=== PATIENT | female | born 1935 | race Caucasian/White ===

== ENCOUNTER 2025-03-30 22:44 | Inpatient (IN) | payer OTHER, SELFPAY ==
[2025-03-30] VITALS (14 sets, daily range): BP systolic 122–176; BP diastolic 60–127; BMI 26.0; BMI 24.5
--- NOTE | 2025-03-30 13:05 | ED.MUSCINJ ---
HPI-Injury
<Aneta Quesada COLLECTIONS ATTORNEY - Last Filed: 03/30/25 17:26>
General
Chief Complaint: Fall
Source: patient and family (Daughter Lorraine at bedside)
Exam Limitations: dementia
Time Seen by Provider: 03/30/25 12:20
History of Present Illness-Injury
Initial Injury comments:
89-year-old female with history of COPD, CAD, HTN, HLD, Drkae's esophagus, anxiety/depression, dementia, pulmonary hypertension, severe arthritis/ennm-vt-igsx right knee, presents after a fall. Patient states she fell in her bedroom, she is
unclear of the exact circumstances, daughter states she is frequent falls over the past few years, last big fall was not January when she fell and fractured her clavicle, she went to rehab and was sent back to [facility] the end of February. She
does use a rollator. She has an aide from 8 AM to 8 PM daily.
Daughter is in process of getting her into an assisted living facility.
She is complaining of pain about the left hip and buttock area, she is not anticoagulated, she denies hitting her head but she is a poor historian. There is no history of loss of consciousness.
Patient is confused about the fall, she thinks she felt dizzy prior to the fall but she is not sure, she think she was using her walker but she is not sure.
Past History
<Aneta Quesada COLLECTIONS ATTORNEY - Last Filed: 03/30/25 17:26>
Past History
ED Past Medical History: COPD, HTN, Hypercholesterolemia, Psychiatric (Alzheimer's dementia, MDD, Anxiety/depression), Other (CKD, Drake's esophagus, osteoporosis) and Other (Gait instability, pulmonary hypertension)
ED Past Surgical History: Orthopedic
Social History
Tobacco: Non-smoker
Alcohol: None
Living: alone (Independent care at [facility])
Review of Systems
<Aneta Quesada COLLECTIONS ATTORNEY - Last Filed: 03/30/25 17:26>
Review of Systems
Allergies reviewed?: Yes
All Other Systems: ROS reviewed and negative except as documented in HPI and ROS
Constitutional: Denies fever
Respiratory: Denies trouble breathing
Cardiac: Denies chest pain or syncope
ABD/GI: Denies abdominal pain, nausea, vomiting or diarrhea
: Reports incontinence; Denies dysuria
Musculoskeletal: Reports other (Left hip and buttock pain, chronic right knee pain)
Neurological: Denies dizzy or headache
Phy Exam
<Aneta Quesada, COLLECTIONS ATTORNEY - Last Filed: 03/30/25 17:26>
Physical Exam
Physical Exam:
GENERAL: No acute distress. A&Ox2.
CONSTITUTIONAL: Afebrile.
EYES: clear, conjunctivae normal
ENMT: moist mucus membranes, Pharynx nl
RESPIRATORY: Regular respirations, nonlabored, lungs clear.
CARDIOVASCULAR: Regular rate and rhythm, no murmurs, no rubs.
GI: Soft, nontender, normal BS
MUSCULOSKELETAL: Tender to palpate left buttock and hip areas (new), R knee (chronic) Well perfused. No edema.
SKIN: Warm, dry, pale
PSYCH: Anxious mood and affect. Well kept, interactive and appropriate
NEUROLOGIC: Awake, alert and oriented x 2. No focal neurological deficits
Injury Course
<nAeta Quesada, COLLECTIONS ATTORNEY - Last Filed: 03/30/25 17:26>
Orders/Labs/Results
Orders:
Orders
03/30/25 11:31
CT Cervical Spine W/o Iv Contr Urgent
Comment:
Reason For Exam: unwitnessed fall, head injury
CT Head W/o Iv Contrast Urgent
Comment:
Reason For Exam: unwitnessed fall, head injury
Hip, Left 2-3 Views [CR Hip - LT w/wo Pel 2-3 Vw*] Urgent
Comment:
Reason For Exam: pain after fall
Include a pelvis x-ray?: Yes
03/30/25 13:20
Morphine Sulfate 2 mg IV NOW STA
03/30/25 13:26
Basic Metabolic Panel Urgent
Complete Blood Count/With Diff Urgent
03/30/25 13:30
Electrocardiogram (*1) Urgent
Reason for Study: Chest Pain
EKG- Treatment ONCE
03/30/25 13:36
Straight cath- Treatment ONCE
0.9% Sodium Chloride 500 ml [Nss] 500 ml IV BOLUS
03/30/25 14:06
Urinalysis Reflex To Culture Urgent
Date Specimen was Collected: 03/30/25
Time Specimen was Collected: 13:31
Urine Microscopic Reflex Cult Urgent
Urine Culture Urgent
JUAN Source: U
Specimen Description:
Obtained by: Random
Date Specimen was Collected: 03/30/25
Time Specimen was Collected: 13:31
03/30/25 14:39
Morphine Sulfate 2 mg IV NOW STA
03/30/25 15:03
Admit/Transfer Patient As Directed
Co-Sign Provider:
Level of Care: Observation services
Assign to:: Medical/Surgical
Physician / Group: Deepika
Diagnosis: Pelvic Fracture
PRN Pain Medication Management As Directed
May give lesser potent ordered pain med per pt: Yes
preference::
Protocol:: Medication orders for pain may be administered in a
manner that supports deferring to patient preference
when the pt is:
- Requesting an ordered lesser potent pain medication.
Least to most potent pain medications are defined
as: acetaminophen < NSAID < tramadol < opioids
(morphine, oxycodone, hydromorphone).
- Requesting a lesser dose of the same medication IF
ORDERED.
- Requesting a less intrusive route of administration
if both routes are prescribed by the provider (PO <
IV).
03/30/25 15:05
Code Status As Directed
Resuscitation Status: Full Code
03/30/25 17:02
Acetaminophen [Tylenol] 1,000 mg PO TID
Lactase Enzyme [Lactaid] 1 capsule PO AC
Oxycodone [Roxicodone] 2.5 mg PO Q4HPRN PRN
Oxycodone [Roxicodone] 5 mg PO Q4HPRN PRN
03/30/25 17:02
Activity As Directed
Activity Level: Out of Bed- Chair
Orthostatic Vital Signs As Directed
Orthostatic VS Frequency: Daily
Pneumatic Compression Sleeves As Directed
Type: Knee high
Vital Signs As Directed
Frequency: Per unit guidelines
Cpap [RESP] Routine
Patient to use own unit?: Yes
Ot Eval And Treat Routine
Pt Eval And Treat Routine
Activity Level: Out of Bed-Early Mobility
With Assistance
DX Deep Vein Thrombosis Video Routine
03/30/25 20:00
Budesonide/Formoterol 160/4.5 [Symbicort 160/4.5 Mcg Inhaler] 2 puff INH R BID
03/30/25 22:00
Amlodipine [Norvasc] 5 mg PO HS
03/31/25 Breakfast
2000 calorie (17 carb) Diabetic
At Your Request: Limited Participation
Does patient need a safe tray?: No
03/31/25 08:00
Atorvastatin [Lipitor] 10 mg PO DAILY
Cholecalciferol (Vitamin D3) [VITAMIN D3 (cholecalciferol)] 25 mcg PO DAILY
Escitalopram Oxalate [Lexapro] 10 mg PO DAILY
Furosemide [Lasix] 20 mg PO DAILY
Losartan [Cozaar] 100 mg PO DAILY
Metoprolol Xl [Toprol Xl] 25 mg PO DAILY
Pantoprazole [Protonix] 40 mg PO DAILY
04/01/25 08:00
Ferrous Sulfate [Feosol] 325 mg PO MoWeFr@0800
Abnormal Lab Results
03/30/25 03/30/25
13:26 14:06
RBC 4.13 L 10^6/uL
(4.20-5.40)
MCHC 32.4 L g/dL
(33.0-37.0)
Absolute Neuts (auto) 7.5 H 10^3/uL
(1.4-6.5)
Absolute Monos (auto) 1.0 H 10^3/uL
(0.1-0.6)
Lymphocytes % 12.7 L %
(20.5-51.1)
Monocytes % 10.1 H %
(1.7-9.3)
Glucose 102 H mg/dl
(70-99)
Urine Ketones 2+ A
(Negative)
Urine Nitrite (Reflex) Positive A
(Negative)
Leukocyte Esterase Rfl 3+ A
(Negative)
Urine WBC (Reflex) 11-15 A /HPF
(0-5)
Urine Bacteria (Reflex) Moderate A
(Negative)
03/30/25 13:26
03/30/25 13:26
<Agustin Jaime, DO - Last Filed: 03/30/25 15:25>
Orders/Labs/Results
Orders:
Orders
03/30/25 11:31
CT Cervical Spine W/o Iv Contr Urgent
Comment:
Reason For Exam: unwitnessed fall, head injury
CT Head W/o Iv Contrast Urgent
Comment:
Reason For Exam: unwitnessed fall, head injury
Hip, Left 2-3 Views [CR Hip - LT w/wo Pel 2-3 Vw*] Urgent
Comment:
Reason For Exam: pain after fall
Include a pelvis x-ray?: Yes
03/30/25 13:20
Morphine Sulfate 2 mg IV NOW STA
03/30/25 13:26
Basic Metabolic Panel Urgent
Complete Blood Count/With Diff Urgent
03/30/25 13:30
Electrocardiogram (*1) Urgent
Reason for Study: Chest Pain
EKG- Treatment ONCE
03/30/25 13:36
Straight cath- Treatment ONCE
0.9% Sodium Chloride 500 ml [Nss] 500 ml IV BOLUS
03/30/25 14:06
Urinalysis Reflex To Culture Urgent
Date Specimen was Collected: 03/30/25
Time Specimen was Collected: 13:31
Urine Microscopic Reflex Cult Urgent
Urine Culture Urgent
JUAN Source: U
Specimen Description:
Obtained by: Random
Date Specimen was Collected: 03/30/25
Time Specimen was Collected: 13:31
03/30/25 14:39
Morphine Sulfate 2 mg IV NOW STA
03/30/25 15:03
Admit/Transfer Patient As Directed
Co-Sign Provider:
Level of Care: Observation services
Assign to:: Medical/Surgical
Physician / Group: Deepika
Diagnosis: Pelvic Fracture
PRN Pain Medication Management As Directed
May give lesser potent ordered pain med per pt: Yes
preference::
Protocol:: Medication orders for pain may be administered in a
manner that supports deferring to patient preference
when the pt is:
- Requesting an ordered lesser potent pain medication.
Least to most potent pain medications are defined
as: acetaminophen < NSAID < tramadol < opioids
(morphine, oxycodone, hydromorphone).
- Requesting a lesser dose of the same medication IF
ORDERED.
- Requesting a less intrusive route of administration
if both routes are prescribed by the provider (PO <
IV).
03/30/25 15:05
Code Status As Directed
Resuscitation Status: Full Code
03/30/25 17:02
Acetaminophen [Tylenol] 1,000 mg PO TID
Lactase Enzyme [Lactaid] 1 capsule PO AC
Oxycodone [Roxicodone] 2.5 mg PO Q4HPRN PRN
Oxycodone [Roxicodone] 5 mg PO Q4HPRN PRN
03/30/25 17:02
Activity As Directed
Activity Level: Out of Bed- Chair
Orthostatic Vital Signs As Directed
Orthostatic VS Frequency: Daily
Pneumatic Compression Sleeves As Directed
Type: Knee high
Vital Signs As Directed
Frequency: Per unit guidelines
Cpap [RESP] Routine
Patient to use own unit?: Yes
Ot Eval And Treat Routine
Pt Eval And Treat Routine
Activity Level: Out of Bed-Early Mobility
With Assistance
DX Deep Vein Thrombosis Video Routine
03/30/25 20:00
Budesonide/Formoterol 160/4.5 [Symbicort 160/4.5 Mcg Inhaler] 2 puff INH R BID
03/30/25 22:00
Amlodipine [Norvasc] 5 mg PO HS
03/31/25 Breakfast
2000 calorie (17 carb) Diabetic
At Your Request: Limited Participation
Does patient need a safe tray?: No
03/31/25 08:00
Atorvastatin [Lipitor] 10 mg PO DAILY
Cholecalciferol (Vitamin D3) [VITAMIN D3 (cholecalciferol)] 25 mcg PO DAILY
Escitalopram Oxalate [Lexapro] 10 mg PO DAILY
Furosemide [Lasix] 20 mg PO DAILY
Losartan [Cozaar] 100 mg PO DAILY
Metoprolol Xl [Toprol Xl] 25 mg PO DAILY
Pantoprazole [Protonix] 40 mg PO DAILY
04/01/25 08:00
Ferrous Sulfate [Feosol] 325 mg PO MoWeFr@0800
Abnormal Lab Results
03/30/25 03/30/25
13:26 14:06
RBC 4.13 L 10^6/uL
(4.20-5.40)
MCHC 32.4 L g/dL
(33.0-37.0)
Absolute Neuts (auto) 7.5 H 10^3/uL
(1.4-6.5)
Absolute Monos (auto) 1.0 H 10^3/uL
(0.1-0.6)
Lymphocytes % 12.7 L %
(20.5-51.1)
Monocytes % 10.1 H %
(1.7-9.3)
Glucose 102 H mg/dl
(70-99)
Urine Ketones 2+ A
(Negative)
Urine Nitrite (Reflex) Positive A
(Negative)
Leukocyte Esterase Rfl 3+ A
(Negative)
Urine WBC (Reflex) 11-15 A /HPF
(0-5)
Urine Bacteria (Reflex) Moderate A
(Negative)
03/30/25 13:26
03/30/25 13:26
<Aneta Quesada COLLECTIONS ATTORNEY - Last Filed: 03/30/25 17:26>
MDM/Problems Addressed
Differential Diagnosis Includes:
Fracture hip, fracture pelvis
MDM/Problems Addressed:
89-year-old female with history of COPD, CAD, HTN, HLD, Drake's esophagus, anxiety/depression, dementia, pulmonary hypertension, severe arthritis/cjar-pi-imbg right knee, presents after a fall. Patient states she fell in her bedroom, she is
unclear of the exact circumstances, daughter states she is frequent falls over the past few years, last big fall was not January when she fell and fractured her clavicle, she went to rehab and was sent back to [facility] the end of February. She
does use a rollator. She has an aide from 8 AM to 8 PM daily.
Daughter is in process of getting her into an assisted living facility.
She is complaining of pain about the left hip and buttock area, she is not anticoagulated, she denies hitting her head but she is a poor historian. There is no history of loss of consciousness.
Patient is confused about the fall, she thinks she felt dizzy prior to the fall but she is not sure, she think she was using her walker but she is not sure.
EKG: Sinus rhythm with PACs, heart rate 86
2:45 PM:
CBC with no clinically significant abnormality
CMP: Normal
UA: Positive nitrites positive leukocytes, WBC 11-15, culture pending
Xray left hip initial read by this examiner: pelvic ring fracture
Results discussed with patient and daughter
Hospitalist notified of admission
<Aneta Quesada COLLECTIONS ATTORNEY - Last Filed: 03/30/25 17:26>
*Pulse Oximetry
SaO2: 94
Oxygen Mode of Delivery: Room air
Patient hypoxic: no
*EKG
EKG Intrepretation Date: 03/30/25
Interpretation: normal (Other than occasional PACs)
Heart Rate: 86
Rate: normal
Rhythm: PAC's
[place]: normal axis
Interval: normal interval
QRS Pattern: normal QRS
Ischemia: no ischemia
*Critical Care Note
Total Time (30-74mins, 75-104mins- exclusive of procedures): Not Applicable
ED Attending Note
<Aneta Quesada COLLECTIONS ATTORNEY - Last Filed: 03/30/25 17:26>
-
Portions of this chart may have been created with voice recognition software.� Occasional wrong word or��sound alike� substitutions may have occurred due to the inherent limitations of voice recognition software.
<Agustin Jaime DO - Last Filed: 03/30/25 15:25>
ED Attending Note
Patient seen and examined by attending physician: Yes
I performed the substantive portion of visit, reviewed & personally made and approve the management plan that is documented in note by myself or VETO.: Yes
ED Attending Note:
I evaluated patient at bedside after narcotic analgesia was given. She overall feels comfortable currently and appears fairly comfortable. Urinalysis abnormal but we will hold off on treatment as she has no obvious symptoms consistent with UTI.
Discharge Plan
Departure
Patient Disposition: Admit
Date of Disposition: 03/30/25
Time of Disposition: 14:40
Admit to: Med/Surg
Presentation/result/management discussed w/ accepting MD/DO: Hospitalist
Condition: Fair
Discharge Problem:
Fall, Fracture left pelvic ring
Interventions
Interventions:
*Risk Screen - Suicide Last Done: 03/30/25 11:28
*General Assessment Last Done: 03/30/25 11:28
*Neglect/Abuse Screening Last Done: 03/30/25 14:00
*ED COVID-19 Vaccine History Last Done: 03/30/25 14:00
*ED Influenza Vaccine History Last Done: 03/30/25 14:00
*Nursing Disposition Last Done: 03/30/25 17:12
ED-Musculoskeletal Assessment Last Done: 03/30/25 16:00
ED- Neurological Assessment Last Done: 03/30/25 16:00
ED-Skin Assessment Last Done: 03/30/25 16:00
Discharge Date and Time
Discharge Date/Time: 03/30/25 17:13
[2025-03-30] MEDS: MORPHINE SULFATE 2 MG IV ×3 (13:28→23:04)
[2025-03-30 13:37] LABS: Hematocrit 38.3 % (37.0-47.0); Hemoglobin 12.4 g/dL (12.0-16.0); Mean Corp Hgb Conc. 32.4 g/dL (33.0-37.0); Mean Corpuscular Volume 92.7 fL (81.0-99.0); Nucleated Red Blood Cells % 0 %; Platelet Count 241 10^3/uL (130-400); Red Cell Dist. Width 14.0 % (11.5-14.5)
[2025-03-30 13:59] LABS: Blood Urea Nitrogen 17 mg/dl (7-17); Calcium 9.0 mg/dl (8.4-10.2); Carbon Dioxide 25 mmol/L (22-30); Chloride 106 mmol/L (98-107); Glucose 102 mg/dl (70-99); Sodium 138 mmol/L (135-145); eGFR > 60.00
[2025-03-30] MEDS: NSS 500 IV (14:08)
[2025-03-30 14:14] LABS: Urine Character Clear (Clear)
[2025-03-30 14:24] LABS: Urine Red Blood Cell 0-2 /HPF (0-2)
--- NOTE | 2025-03-30 14:49 | HPS.HSE ---
Addendum entered and electronically signed by Cathryn Poe MD 03/30/25 16:29:
This is an addendum to H&P written by Ciera Carmichael on 03/30/2025. �Patient seen and examined independently with PA.
89-year-old female past medical history of COPD, CAD, hypertension, hyperlipidemia, Drake's esophagus/GERD, anxiety/depression, dementia, pulmonary hypertension, severe arthritis, iron deficiency anemia, ambulatory dysfunction with balance and
gait disturbance, history of fracture due to fall, cognitive impairment, osteoporosis, obstructive sleep apnea on CPAP, venous insufficiency, prior clavicular/humerus fracture, presenting with fall last week and again this morning. �Unsure head
injury. �Patient with possible dizziness.
Pain left hip/groin.
Vital signs unremarkable. �EKG shows sinus rhythm with PACs.
Labs unremarkable. �Urinalysis shows 11-15 WBC, positive nitrates, +[address] head/cervical spine shows no acute intracranial abnormality or osseous abnormality. �Hip x-ray shows mildly displaced fracture of the left superior inferior pubic rami.
Patient with ongoing ambulatory dysfunction with frequent falls here with falls again resulting in left superior and inferior pubic rami fractures. �Tylenol, oxycodone for pain. �PT OT. �Check orthostatic vital signs.
Original Note:
Family Physician
-
Family Physician: Jim Jones, DO
Chief Complaint
-
Frequent Falls
History of Present Illness
Patient is an 89 y/o female past medical history of coronary atherosclerosis, hypertension, hyperlipidemia, pre-diabetes, COPD and mild cognitive impairment who presents with frequent falls. Patient has been experiencing increasing falls. Over the
summer she suffered a proximal humerus fracture as well as a clavicle fracture. Patient had a fall last week and since that time she has been complaining of left groin pain. Patient sustained another fall this morning and was brought to the
emergency department for evaluation.
Medical History
Past Medical History
Past Medical History: Reports Other
Additional Past Medical History:
Coronary Atherosclerosis
Essential Hypertension
Hyperlipidemia
Pre-Diabetes
COPD
Mild Cognitive Impairment
Anxiety / Depression
GERD
Osteoarthritis
Chronic Lower Extremity Edema
Obstructive Sleep Apnea
Past Surgical History: Reports Other
Additional Past Surgical History:
Left Radius/Ulna ORIF
Social History
Tobacco: Non-smoker
Living: Other (Independent apartment at [facility] with care givers ~12 hours per day)
Family History
Family History: Not pertinent
Allergies / Home Medications
Allergies reflects when Allergies were last updated in [facility].
Home Medications with original date entered in [facility]
Allergy/Medication List:
Allergies
Allergy/AdvReac Type Severity Reaction Status Date / Time
No Known Allergies Allergy Verified 01/18/25 11:38
Home Medications
acetaminophen 500 mg tablet 1,000 mg PO BID 01/18/25
albuterol sulfate 90 mcg/actuation aerosol inhaler 2 puff inhalation Q6H PRN sob 01/18/25
amlodipine 5 mg tablet 5 mg PO HS 01/18/25
atorvastatin 10 mg tablet 10 mg PO DAILY 01/18/25
cholecalciferol (vitamin D3) 25 mcg (1,000 unit) tablet (Vitamin D3) 25 mcg PO DAILY 01/18/25
escitalopram oxalate 10 mg tablet (Lexapro) 10 mg PO DAILY 01/18/25
ferrous sulfate 325 mg (65 mg iron) tablet (Iron (ferrous sulfate)) 325 mg PO MOWEFR 01/18/25
fluticasone furoate 100 mcg-vilanterol 25 mcg/dose inhalation powder (Breo Ellipta) 1 inh inhalation DAILY 01/18/25
furosemide 20 mg tablet (Lasix) 20 mg PO DAILY 01/18/25
losartan 100 mg tablet 100 mg PO DAILY 01/18/25
metoprolol succinate 25 mg tablet,extended release 24 hr 25 mg PO DAILY 01/18/25
omeprazole 20 mg tablet,delayed release 20 mg PO DAILY 01/18/25
lactase 3,000 unit tablet (Dairy Relief) 3,000 unit PO AC 03/30/25
Review of Systems
-
Unable to obtain full review of systems at this time due to: Dementia (Cognitive Impairment)
A 12 point ROS was completed and negative except as noted: Yes
Physical Exam
Vital Signs
Vital Signs
Temp Pulse Resp BP Pulse Ox
98.8 F 73 18 158/80 94
03/30/25 11:28 03/30/25 11:28 03/30/25 11:28 03/30/25 11:28 03/30/25 13:07
Physical Exam
General: Comfortable and Conversant
HEENT: Anicteric and Moist mucous membranes
Respiratory: Clear and Non Labored Respirations
Cardiac: S1/S2 and Regular Rhythm
GI: Soft and Non Tender
Musculoskeletal: No Clubbing and No Cyanosis
Skin: Warm and Dry
Neuro: Awake, Alert and Nonfocal/grossly intact
Psych: Calm
Laboratory Results
-
03/30/25 13:26
03/30/25 13:26
Laboratory Results
Total Bilirubin Cancelled 03/30/25 13:26
AST Cancelled 03/30/25 13:26
ALT Cancelled 03/30/25 13:26
Alkaline Phosphatase Cancelled 03/30/25 13:26
Data Reviewed
-
Diagnostic Radiology: Report Reviewed by me
CT Scan: Report Reviewed by me
Lab Data: Labs Reviewed by me
Impression/Plan
-
Pelvic Fracture
-Consult PT/OT
-Add Tylenol 1000mg TID
-Add oxycodone PRN moderate/severe pain
-Consult care management for discharge planning
Essential Hypertension
-Continue amlodipine, losartan and metoprolol
Hyperlipidemia
-Continue atorvastatin
Pre-Diabetes
-HgbA1c January 2025: 6.0
-Continue diabetic diet
COPD, no acute exacerbation
-Continue Breo
Anxiety / Depression
-Continue Lexapro
Chronic Lower Extremity Edema
-Continue Lasix
Obstructive Sleep Apnea
-Daughter to bring patients CPAP
Incidental Thyroid Nodule
-Recommend thyroid ultrasound as outpatient
DVT proph: SCDs
Code Status: Full Code
[2025-03-30] MEDS: TYLENOL 1000 MG PO (17:24)
[2025-03-30] MEDS: ROXICODONE 5 MG PO (17:24)
[2025-03-30] MEDS: LACTAID 1 CAPSULE PO (17:51)
[2025-03-30] MEDS: SYMBICORT 160/4.5 MCG INHALER 2 PUFF INH (19:06)
[2025-03-30 22:18] LABS: Glucose - Point of Care 117 mg/dl (70-99)
--- NOTE | 2025-03-30 22:29 | W.PN.UPDATE ---
Update Note
Progress Note Update
RECRUITER SPECIALIST
Patient is hypoxic Spo2 80%, coffee brown vomit.
Patient is alert, Abdomen distended and diminished lung sound on exam.
-NGT and GI consult
-Abg, Chest x-ray, abdomen x-ray, cbc, abg, bmp.
-Abdomen CT when the patient is stable
-IV Protonix BID
-ICU transfer discussed with the admitting physician
-Daughter updated
[2025-03-30] MEDS: MELATONIN PO (22:35)
[2025-03-30] MEDS: TYLENOL PO (22:35)
[2025-03-30] MEDS: NORVASC PO (22:35)
[2025-03-30 22:38] LABS: Hematocrit 38.0 % (37.0-47.0); Hemoglobin 12.7 g/dL (12.0-16.0); Mean Corp Hgb Conc. 33.4 g/dL (33.0-37.0); Mean Corpuscular Volume 88.4 fL (81.0-99.0); Platelet Count 264 10^3/uL (130-400); Red Cell Dist. Width 14.0 % (11.5-14.5)
[2025-03-30 22:51] LABS: INR 1.05; PT 14.2 Sec (11.4-14.6)
[2025-03-30 22:52] LABS: APTT 26.8 Sec (23.4-35.0)
[2025-03-30 22:56] LABS: ALT (SGPT) 12 U/L (0-35); AST (SGOT) 20 U/L (14-36); Albumin 3.9 g/dl (3.5-5.0); Alkaline Phosphatase 155 U/L (38-126); Blood Urea Nitrogen 13 mg/dl (7-17); Calcium 9.0 mg/dl (8.4-10.2); Carbon Dioxide 26 mmol/L (22-30); Chloride 104 mmol/L (98-107); Estimated Creatinine Clearance 56 ml/min; Glucose 126 mg/dl (70-99); Magnesium 1.6 mg/dl (1.6-2.3); Potassium 3.4 mmol/L (3.5-5.1); Sodium 133 mmol/L (135-145); Total Protein 7.2 g/dl (6.3-8.2); eGFR > 60.00
[2025-03-30 22:58] LABS: Glucose - Point of Care 118 mg/dl (70-99)
[2025-03-30] MEDS: PROTONIX IV 40 MG IV (23:04)
[2025-03-30] MEDS: LASIX 40 MG IV (23:04)
[2025-03-30] MEDS: NSS (PRESERVATIVE FREE) 10 ML IV (23:04)
[2025-03-30 23:07] LABS: Troponin I 0.017 ng/ml
[2025-03-30 23:14] LABS: D-Dimer 2.34 ug/mlFEU (0.00-0.50)
[2025-03-30] MEDS: DUONEB 3 ML INH (23:32)
[2025-03-30] MEDS: KCL 270 MEQ IV (23:43)
[2025-03-30] MEDS: MAGNESIUM SULFATE 50 IV (23:43)
[2025-03-30] MEDS: UNASYN IV (23:44)
[2025-03-31] VITALS (42 sets, daily range): BP systolic 109–167; BP diastolic 54–98; BMI 24.0
[2025-03-31 00:08] LABS: COVID-19 Antigen Negative (Negative)
[2025-03-31 00:16] LABS: B.E. 1.7 mmol/L; HCO3 26.6 mmol/L (21-28); O2 Saturation % 97.0 % (94-98); O2 Therapy O2; PCO2 42 mmHg (32-35); PO2 81 mmHg (83-108)
--- NOTE | 2025-03-31 01:18 | PTCARENOTE ---
RN was doing her rounds & found pt with coffee ground emesis,SPO2-64% on room air,pt was placed on oxygen & later non rebreather, pt was alert at this time,denied of any complaints.KADI Lamas was called to check on pt & made aware of pt vitals
BP-170/99,hr-143,SPO2-84%.Rapid response was called on pt.NG tube was placed on pt while on floor. Report was provided to JOSE Franco at bedside.Pt was transfered to ICU by rapid reponse team.
[2025-03-31] MEDS: OFIRMEV 100 IV ×2 (01:29→11:20)
[2025-03-31] MEDS: MORPHINE SULFATE 2 MG IV (01:29)
--- NOTE | 2025-03-31 02:00 | PTCARENOTE ---
Patient received as rapid response from 4th floor. Patient's POX in 80s on 15L NRB on arrival to unit. Patient placed on 50LHFNC 100% w/ 15L NRB - POX in low 90s. Lungs coarse w/ expiratory wheeze. Patient tachypneic and complaining of SOB. Patient
AAOx1-2 - disoriented to place @ times and disoriented to time, drowsy/Lethargic. ST w/ PVCs on monitor. Patient w/ NGT in L nare @ 60 putting out red/brown coffee ground output - 250mls immediately upon arrival to unit. Patient's abd
round/obese/mildly distended with hypo bowel sounds. Thermistor Wooten placed and immediately drained 250 cloudy yellow urine. Patient's B/L ankles w/ +1 edema. Patient given IV Lasix, Protonix, and morphine - see AUG. Patient taken to CT for scan of
Abd/Pelvis/Chest. Patient's temp elevated to 101.9 - IV Ofirmev ordered and administered - see AUG.
--- NOTE | 2025-03-31 02:00 | PTCARENOTE ---
Patient received as rapid response from 4th floor. Patient's POX in 80s on 15L NRB on arrival to unit. Patient placed on 50LHFNC 100% w/ 15L NRB - POX in low 90s. Lungs coarse w/ expiratory wheeze. Patient tachypneic and complaining of SOB. Patient
AAOx1-2 - disoriented to place @ times and disoriented to time, drowsy/Lethargic. ST w/ PVCs on monitor. Patient w/ NGT in L nare @ 60 putting out red/brown coffee ground output - 250mls immediately upon arrival to unit. Patient's abd round/soft
with hypo bowel sounds. Thermistor Wooten placed and immediately drained 250 cloudy yellow urine. Patient's B/L ankles w/ +1 edema. Patient given IV Lasix, Protonix, and morphine - see AUG. Patient taken to CT for scan of Abd/Pelvis/Chest. Patient's
temp elevated to 101.9 - IV Ofirmev ordered and administered - see AUG.
--- NOTE | 2025-03-31 04:27 | W.PN.UPDATE ---
Update Note
Progress Note Update
03/30/25
2300- Patient transferred to ICU for acute hypoxemic respiratory failure, worsening oxygenation needs from room air to now high flow nasal cannula. Initially she had desaturated to 60% and was sustaining 80%, upon arrival to the ICU she was on a
non rebreather and transitioned to high flow nasal cannula, oxygen saturations improved to 95%. She was HR tachycardic 130-140s and tachypnea, bilateral breath sounds wheezing and rales. NGT drainage dark red/brown coffee ground emesis, concern
for probable aspiration pneumonia/pneumonitis vs Pulmonary embolism (patient has had falls and factures, and limited mobility recently, hypoxemia, and tachycardia) vs heart failure (patient also had lower leg/ankle swelling +2 pitting edema
bilaterally and slightly hypertensive sbp 130-140s). Chest xray obtained, 40mg IV Lasix given, 2mg IV morphine, and labs obtained. Patient's respiratory status improved after albuterol nebulizer for wheezing, morphine, and HFNC. CTA ordered to
r/o PE and deferred until patient's respiratory status has improved. Echo and bilateral US lower legs ordered. Protonix IV for coffee ground emesis with NGT to low intermittent suction, GI consult placed.
03/31/25
0015- Patient's daughter called and was updated on plan of care, all questions answered.
CTA negative for PE.
[2025-03-31 04:31] LABS: Hematocrit 36.7 % (37.0-47.0); Hemoglobin 12.4 g/dL (12.0-16.0); Mean Corp Hgb Conc. 33.8 g/dL (33.0-37.0); Mean Corpuscular Volume 90.0 fL (81.0-99.0); Platelet Count 259 10^3/uL (130-400); Red Cell Dist. Width 13.8 % (11.5-14.5)
[2025-03-31 04:53] LABS: Blood Urea Nitrogen 13 mg/dl (7-17); Calcium 8.4 mg/dl (8.4-10.2); Carbon Dioxide 28 mmol/L (22-30); Chloride 105 mmol/L (98-107); Estimated Creatinine Clearance 56 ml/min; Glucose 125 mg/dl (70-99); Potassium 4.2 mmol/L (3.5-5.1); Sodium 139 mmol/L (135-145); eGFR > 60.00
--- NOTE | 2025-03-31 06:11 | CON.GI ---
Addendum entered and electronically signed by Deneen Fraser DO 03/31/25 11:36:
The patient was seen and examined by me independently in collaboration with the nurse practitioner.
Past medical history/social history/medications/allergies/family history reviewed.
Lab data and imaging data reviewed.
89 y.o. female w/ pmhx COPD, CAD, HTN, HLD, KALI, pulm HTN, Barretts, hx colon polyps, cognitive impairment, ambulatory dx and prior cervical fracture admitted following a mechanical fall, found to be hypoxic with SpO2 in the 60s and tachycardic,
after which she vomited s/p NGT placement with immediate drainage of red/brown coffee-ground material, concern for aspiration. She denies NSAID use when asked, however, family reports she started taking ibuprofen 600mg BID for a few days last week
after a fall. Of note, seen in the office by Dr. Messer in May 2024 for AMELIA and positive cologuard, recommended to have an EGD and Colonoscopy, however, she did not complete these.
CT Chest/Abdomen/Pelvis:
Mild RLL airspsace disease c/f pneumonia
hypodense hepatic lesions, likely cysts vs. hemangiomas
small b/l pleural effusions
acute left superior and inferior pubic ramus bone fractures
3 mm distal right ureteral stone
moderate anterior wedge compression fracture of T11, age-indeterminate
Intrathoracic stomach, fluid filled esophagus
A/P: 89 y.o. female admitted following mechanical fall found to have left superior and inferior pubic ramus bone fractures with course c/b hypoxemia, UGIB and aspiration pneumonia, currently on 6L O2.
Coffee-ground emesis in setting of NSAID use as well as suspect hiatal hernia vs. paraesophageal hernia--broad ddx including erosive gastritis/esophagitis, ulcer, MWT, zofia lesions, AVM, diuealfoy, ischmic vs. malignancy
-has NG in place, continue for now, clamping trial once improved
-hgb normal, continue to trend
-no signs of active/hemodynamically unstable GI bleeding
-IV PPI BID
-treat aspiration pneumonia/optimize respiratory status, once improved, will discuss EGD with family --- previously had deferred in June
Will follow.
Addendum entered and electronically signed by KADI Mai 03/31/25 08:03:
add to below CT also noted with , fluid filled esophagus to level of thoracic outlet, esophageal wall thickening-- esophagitis also in differential
Original Note:
Consultation
-
Date/Time Consultation Requested: 03/30/252229
Date/Time Consultation Performed: 03/31/25 0615
Requesting Provider: KADI Leblanc
Performing Provider: KADI Pollack, Beatrice Fraser DO
Reason for Consultation: coffee ground emesis
Medical History
Chief Complaint / HPI
History of Present Illness:
Pt is a 89yo with hx large HH per imaging, COPD, CAD, HTN, hypercholesterolemia, sleep apnea, pulm HTN, Dwyer's, GERD, colon polyps, AMELIA, cognitive impairment, anxiety/depression, arthritis, ambulatory dysfunction, prior cervical fracture
presents with fall. After admission patient was noted with acute hypoxemia with sat to 60's with tachycardia. She was noted with vomiting with placement of NGT with drainage of red/brown CGE with concern for aspiration. CT and abd X ray as noted
with large HH air distention in proximal colon, acute rami fracture along with other findings. In review of chart, pt was seen by Dr. Messer in May for + cologuard and AMELIA. She was recommended EGD/colon but did not proceed. In review with
patient she is lethargic but denies NSAID use or current nausea, abdominal pain or issues with constipation.
In review with family pt did not proceed as concern for anesthesia and cognitive impairment . She have fall last week and started taking Ibuprofen BID 600mg for a few days. Prior to admission pt was also having diarrhea improved with lactate
and was on chronic Omeprazole with controlled GERD. She otherwise has no odynophagia, dysphagia, wt loss, abdominal pain, constipation, blood or black in stools. Hx EGD/colonoscopy in within last 10 years at [facility] with [address] Messer. Per chart
? colon polyp and dwyer's.
03/30/25- CT chest/abd/pelvis- preliminary no PE, no thoracic aneurysm or dissection, right LL infection/aspiration, multifocal nodule, small b/l pleural effusion, large HH, fluid filled esophagus to level of thoracic outlet, esophageal wall
thickening , T11 deformity, no suspicious lymph nodes, displaced pubic ramus and left superior pubic ramus fracture with swelling, 2.2 mm stone distal right ureter without hydro no bowel obstruction, normal GB
03/30/25 abd film
1. No radiographic evidence for small bowel obstruction.
2. Mild air distention of the proximal colon.
3. Acute fractures of the left superior and inferior pubic rami.
4. Severe lower lumbar discogenic degenerative disease and facet joint arthrosis.
Past Medical History
Past Medical History: CAD, COPD, GERD, HTN, Hypercholesterolemia, Psychiatric (anxiety/depression, dementia ) and Other (KALI, dwyer's, colon polyps, congitive impairment, pulm HTN, ambulatory dysfunction, balance issues, large HH per imaging )
Past Surgical History: Orthopedic (left knee replacement, prior clavical fracture)
Social History
Tobacco: Non-Smoker
Alcohol: Occasional (rare)
Drug: None
Personal:
Living: Alone ([facility] )
Employment: Retired
Family History
Family History: Other (no family hx colon CA or GI issues)
Allergies / Home Medications
Allergy/AdvReac Type Severity Reaction Status Date / Time
No Known Allergies Allergy Verified 01/18/25 11:38
�Medication �Instructions �Recorded
acetaminophen 500 mg tablet 1,000 mg PO BID 01/18/25
albuterol sulfate 90 mcg/actuation 2 puff inhalation Q6H PRN sob 01/18/25
aerosol inhaler
amlodipine 5 mg tablet 5 mg PO HS 01/18/25
atorvastatin 10 mg tablet 10 mg PO DAILY 01/18/25
cholecalciferol (vitamin D3) 25 25 mcg PO DAILY 01/18/25
mcg (1,000 unit) tablet (Vitamin
D3)
escitalopram oxalate 10 mg tablet 10 mg PO DAILY 01/18/25
(Lexapro)
ferrous sulfate 325 mg (65 mg 325 mg PO MOWEFR 01/18/25
iron) tablet (Iron (ferrous
sulfate))
fluticasone furoate 100 1 inh inhalation DAILY 01/18/25
mcg-vilanterol 25 mcg/dose
inhalation powder (Breo Ellipta)
furosemide 20 mg tablet (Lasix) 20 mg PO DAILY 01/18/25
losartan 100 mg tablet 100 mg PO DAILY 01/18/25
metoprolol succinate 25 mg 25 mg PO DAILY 01/18/25
tablet,extended release 24 hr
omeprazole 20 mg tablet,delayed 20 mg PO DAILY 01/18/25
release
lactase 3,000 unit tablet (Dairy 3,000 unit PO AC 03/30/25
Relief)
Review of Systems
-
Unable to obtain full review of systems at this time due to: Dementia
History Source: Patient and Family
Constitutional: Reports No Symptoms
EENT: Reports No Symptoms
Respiratory: Reports No Symptoms
Cardiac: Reports No Symptoms
Abdomen/GI: Reports Diarrhea
: Reports Other (overactive bladder with prior botox in january )
Musculoskeletal: Reports Other
Neurological: Reports Weakness and Other (falls )
Endocrine: Reports No Symptoms
Hematologic/Lymphatic: Reports Bleeding
Vital Signs
Temp Pulse Resp BP Pulse Ox
100.1 F 86 20 129/73 98
03/31/25 05:24 03/31/25 05:30 03/31/25 05:30 03/31/25 05:30 03/31/25 02:21
Physical Exam
Exam
General: Other (elderly female with some weakness, answers some questions then drift off in conversation)
HEENT: Normocephalic and Anicteric
Respiratory: Other (decreased bases on current 6 L O2)
Cardiac: Regular Rhythm
GI: Soft, Non Distended, Distended and Other (NGT with dark brown emesis about 450 drainage since placement )
Musculoskeletal: No Clubbing and No Cyanosis
Skin: Warm and Dry
Neuro: Other (lethargic but answering some questions )
Psych: Calm
Results
WBC 21.2 10^3/uL (4.8-10.8) H 03/31/25 04:13
Hgb 12.4 g/dL (12.0-16.0) 03/31/25 04:13
Hct 36.7 % (37.0-47.0) L 03/31/25 04:13
MCV 90.0 fL (81.0-99.0) 03/31/25 04:13
Plt Count 259 10^3/uL (130-400) 03/31/25 04:13
Absolute Neuts (auto) 7.5 10^3/uL (1.4-6.5) H 03/30/25 13:26
PT 14.2 Sec (11.4-14.6) 03/30/25 22:20
INR 1.05 03/30/25 22:20
APTT 26.8 Sec (23.4-35.0) 03/30/25 22:20
Sodium 139 mmol/L (135-145) 03/31/25 04:13
Potassium 4.2 mmol/L (3.5-5.1) 03/31/25 04:13
Chloride 105 mmol/L (98-107) 03/31/25 04:13
Carbon Dioxide 28 mmol/L (22-30) 03/31/25 04:13
BUN 13 mg/dl (7-17) 03/31/25 04:13
Creatinine 0.6 mg/dL (0.6-1.0) 03/31/25 04:13
Calcium 8.4 mg/dl (8.4-10.2) 03/31/25 04:13
Total Bilirubin 1.0 mg/dl (0.2-1.3) 03/30/25 22:20
AST 20 U/L (14-36) 03/30/25 22:20
ALT 12 U/L (0-35) 03/30/25 22:20
Alkaline Phosphatase 155 U/L (38-126) H 03/30/25 22:20
Diagnostic Image Results:
03/30/25- CT chest/abd/pelvis- preliminary no PE, no thoracic aneurysm or dissection, right LL infection/aspiration, multifocal nodule, small b/l pleural effusion, large HH, fluid filled esophagus to level of thoracic outlet, esophageal wall
thickening , T11 deformity, no suspicious lymph nodes, displaced pubic ramus and left superior pubic ramus fracture with swelling, 2.2 mm stone distal right ureter without hydro no bowel obstruction, normal GB
03/30/25 abd film
1. No radiographic evidence for small bowel obstruction.
2. Mild air distention of the proximal colon.
3. Acute fractures of the left superior and inferior pubic rami.
4. Severe lower lumbar discogenic degenerative disease and facet joint arthrosis.
Prior GI Procedures:
EGD: 10 years ago du[facility] messer
Colonoscopy:10 years ago ? polyps
Assessment / Plan
-
Pt is a 89yo with hx large HH per imaging, presents with fall. After admission patient was noted with acute hypoxemia with sat to 60's with tachycardia. She was noted with vomiting with placement of NGT with drainage of red/brown CGE with
concern for aspiration. CT and abd X ray as noted with large HH air distention in proximal colon, acute rami fracture along with other findings. In review of chart, pt was seen by Dr. Messer in May for + cologuard and AMELIA. She was
recommended EGD/colon but did not proceed. In review with family pt did not proceed as concern for anesthesia and cognitive impairment . She have fall last week and started taking Ibuprofen BID 600mg for a few days. Prior to admission pt was
also having diarrhea improved with lactate and was on chronic Omeprazole with controlled GERD. Hx EGD/colonoscopy in within last 10 years at [facility] with [address] Messer. Per chart ? colon polyp and dwyer's.
-dark emesis with NGT placement with vomiting
-recent NSAID use s/p fall
-large HH
-hx AMELIA with chronic iron with normal Hbg
-abd X ray with air distention proximal colon
-rami fracture with recent falls
-hypoxemia with concern for aspiration
-leukocytosis
other med problems:
COPD, CAD, HTN, hypercholesterolemia, sleep apnea, pulm HTN, Dwyer's, GERD, colon polyps, AMELIA, cognitive impairment, anxiety/depression, arthritis, ambulatory dysfunction, prior cervical fracture
PLAN:
Etiology of dark emesis related to zofia lesion with large HH, PUD with hx recent NSAID use, ectasia, mass vs other
cont NGT for now -- if improving consider clamping trial
cont PPI BID
trend hbg remains normal
NPO
NSAID avoidance
cont rx for resp issue and concern for aspiration
when improved from resp standpoint t/c EGD +/- colon -- patient and family had deferred in June with cognitive issues and unsure if still would want to proceed. When stabilized will need to rediscuss with daughter Malcolm who assist with
medical decision making
-
-
Thank you for consultation and allowing me to participate in the patient's care. Please call the [facility] GI physician during the after hours with any questions or concerns.
--- NOTE | 2025-03-31 06:39 | PTCARENOTE ---
Patient placed on 6LNC and POX maintaining 91-96%. Patient remains drowsy/lethargic - awakes to voice but quickly falls asleep.
[2025-03-31] MEDS: UNASYN IV ×3 (06:40→17:36)
[2025-03-31] MEDS: SYMBICORT 160/4.5 MCG INHALER 2 PUFF INH (07:29)
--- NOTE | 2025-03-31 08:15 | PTCARENOTE ---
Assumed care of patient. Pt rec'd sleeping. Arousable to voice. Opens eyes and follows simple commands. Confused to time and place. Denies any pain. LE's stiff..elevated on pillows. S1 S2 reg and distant w/ NSR/PVC on monitor. +PP. Trace
ankle edema. U/S LE's being done this am. On 6L N/C...sats 98%. Lungs diminished in bases...left lung clear anteriorly...right lung coarse. Moist NPC. Abdomen round...+BS. Left nare [place] -> LIWS (60cm)...draining dark brown/black drainage.
Temp sensing jaramillo draining yellow urine...jaramillo care done. Skin pale in color. LE's w/ brown discoloration. Multiple peripheral INT's. VS documented. NPO. Ok to give meds via NGT. Safe environment confirmed. Will continue to monitor.
[2025-03-31] MEDS: PROTONIX IV 40 MG IV ×2 (08:19→20:31)
[2025-03-31] MEDS: NSS (PRESERVATIVE FREE) 10 ML IV ×2 (08:20→20:31)
[2025-03-31] MEDS: LASIX 20 MG PO (08:26)
[2025-03-31] MEDS: LIPITOR 10 MG PO (08:26)
[2025-03-31] MEDS: COZAAR 100 MG PO (08:26)
[2025-03-31] MEDS: TOPROL XL PO (08:27)
[2025-03-31] MEDS: VITAMIN D3 (cholecalciferol) 25 MCG PO (08:27)
[2025-03-31] MEDS: LACTAID PO ×3 (08:27→16:45)
--- NOTE | 2025-03-31 08:40 | CON.INTV ---
Consultation
Consultation Request
Date/Time Consultation Requested: 03/30/2025
Date/Time Consultation Performed: 03/31/2025
Medical History
-
History of Present Illness:
This is an 89 y/o female with pmhx of COPD, coronary artery disease, essential hypertension, Drake�s Esophagus/GERD, Hyperlipidemia, dementia, pulmonary hypertension, osteoporosis, ambulatory dysfunction who presented to the ED on 03/30 with a
fall occurring 1 week prior and the day of presentation. Since her fall 1 week prior she had been complaining of left groin pain. She lives at an independent apartment at [facility] with care givers who are there ~12 hours per day.
In the ED, vitals were within normal limits. EKG showed sinus rhythm with PACs. Urinalysis showed 11-15 WBC, positive nitrites, +[address] head/cervical spine showed no acute intracranial abnormality or osseous abnormality. X-ray of the Hip showed mildly displaced fracture of the left superior and inferior pubic rami. Abdominal X-ray: No evidence for small bowel obstruction, mild
air dissension of proximal colon. Acute fractures of left superior and inferior pubic rami.
On the same day of admission she suddenly became hypoxic with O2 saturation in the 60s and vomited coffee brown material. Her abdomen became distended and diminished lung sounds were noted on exam. An NG tube was placed, GI was consulted. IV
Protonix was initiated and she was transferred to the ICU. Upon arrival in the ICU she was on a nonrebreather, which was transitioned to high flow nasal cannula. Her O2 saturation improved to 95%. Her respiratory status improved after administration
of albuterol nebulizer. CTA Chest was ordered, which was negative for PE.
Today she was sleeping in bed. She has no concerns or complaints at this time after I woke her up. She was aware she was in a hospital, but could not name the specific one.
Past Medical History
Past Medical History: CAD, GERD, HTN, Hypercholesterolemia and Other (Drake's Esophagus, Dementia, Pulmonary Hypertension, Osteoporosis)
Social History
Tobacco: Non-smoker
Alcohol: Other (Rare)
Drug: None
Personal:
Living: Other (independent apartment at [facility] with care givers who are there ~12 hours per day. )
Employment: Retired
Family History
Family History: Reviewed & Not Pertinent
Allergies / Home Medications
Allergies
Allergy/AdvReac Type Severity Reaction Status Date / Time
No Known Allergies Allergy Verified 01/18/25 11:38
Home Medications
�Medication �Instructions �Recorded �Confirmed �Last Taken �Type
acetaminophen 500 mg tablet 1,000 mg PO BID 01/18/25 03/30/25 Unknown History
albuterol sulfate 90 mcg/actuation 2 puff inhalation Q6H PRN sob 01/18/25 03/30/25 Unknown History
aerosol inhaler
amlodipine 5 mg tablet 5 mg PO HS 01/18/25 03/30/25 Unknown History
atorvastatin 10 mg tablet 10 mg PO DAILY 01/18/25 03/30/25 Unknown History
cholecalciferol (vitamin D3) 25 25 mcg PO DAILY 01/18/25 03/30/25 Unknown History
mcg (1,000 unit) tablet (Vitamin
D3)
escitalopram oxalate 10 mg tablet 10 mg PO DAILY 01/18/25 03/30/25 Unknown History
(Lexapro)
ferrous sulfate 325 mg (65 mg 325 mg PO MOWEFR 01/18/25 03/30/25 Unknown History
iron) tablet (Iron (ferrous
sulfate))
fluticasone furoate 100 1 inh inhalation DAILY 01/18/25 03/30/25 Unknown History
mcg-vilanterol 25 mcg/dose
inhalation powder (Breo Ellipta)
furosemide 20 mg tablet (Lasix) 20 mg PO DAILY 01/18/25 03/30/25 Unknown History
losartan 100 mg tablet 100 mg PO DAILY 01/18/25 03/30/25 Unknown History
metoprolol succinate 25 mg 25 mg PO DAILY 01/18/25 03/30/25 Unknown History
tablet,extended release 24 hr
omeprazole 20 mg tablet,delayed 20 mg PO DAILY 01/18/25 03/30/25 Unknown History
release
lactase 3,000 unit tablet (Dairy 3,000 unit PO AC 03/30/25 03/30/25 Unknown History
Relief)
Review of Systems
-
Unable to Obtain full review of systems at this time due to: Dementia
History Source: Patient
Respiratory: No Symptoms
Cardiac: No Symptoms
Abdomen/GI: No Symptoms
Musculoskeletal: Joint Pain (Denies) and Muscle Pain (Denies)
Neuro: Dizzy (Denies) and Headache (Denies)
Vitals / Labs / Diagnostic Testing
Vital Signs
Temp Pulse Resp BP Pulse Ox
99.7 F 110 22 120/72 96
03/31/25 08:02 03/31/25 08:26 03/31/25 07:31 03/31/25 08:26 03/31/25 07:31
Lab Data
03/31/25 04:13
03/31/25 04:13
Laboratory Results
03/30/25 03/31/25
22:20 00:02
PT 14.2
INR 1.05
APTT 26.8
pH 7.41
pCO2 42 H
pO2 81 L
HCO3 26.6
O2 Delivery Level O2
Microbiology
03/30/25 23:37 Nasal Swab Influenza Types A & B (KAELYN) - Final
Negative for Influenza A & B, NAAT
Negative results must be combined with clinical observations
and patient history.
Nucleic Acid Amplification test (NAAT)performed on the
[employer] platform.
Diagnostic Testing:
Physical Exam
-
HEENT: Normocephalic and Anicteric
Cardiovascular: S1/S2 and Regular Rhythm
Respiratory: Clear
Neurology: Awake and Alert
Skin: Warm and Dry
General: Comfortable
Assessment
-
Assessment:
This is an 89 y/o female with pmhx of COPD, coronary artery disease, essential hypertension, Drake�s Esophagus/GERD, Hyperlipidemia, dementia, pulmonary hypertension, osteoporosis, ambulatory dysfunction who presented to the ED on 03/30 with a
fall occurring 1 week prior and the day of presentation who was initially found to have pelvic fractures but now with new acute respiratory insufficiency likely secondary to aspiration pneumonia due to vomiting episode while admitted.
Plan:
Acute Respiratory Insufficiency
Per Chest CT 03/31: No gross pulmonary embolus. Limited exam. Tiny bilateral pleural effusions. Moderate right lower lobe airspace disease concerning for pneumonia. New Moderate bibasilar consolidation probably atelectasis. New
Concern for aspiration pneumonia given emesis event (noted below)
Continue Supplemental Oxygen (Currently on 6L). Goal to wean down to keep oxygen saturation >92%
Continue Unasyn (Start date 03/31)
Drake's Esophagus
Dark Emesis
Patient with recent NSAID use after falls with personal history of GERD/Drake's Esophagus
Per CT Chest 03/31: Intrathoracic stomach. Fluid-filled esophagus. New
Currently NPO with NG tube. NG tube placement difficult to ascertain due to intrathoracic stomach
Continue IV PPI
Gastroenterology is following, will appreciate their insight
Patient previously denied EGD in 06/2024
Pelvic Fracture
Osteoporosis
Per X-ray Hip 03/30: There are mildly displaced fractures of the left superior and inferior pubic rami. There is no evidence of proximal femoral fracture or dislocation.
Per CT Chest 03/31: Moderate age indeterminate anterior wedge compression fracture of T11. Subacute right posterior second rib fracture.
Recommend continued fall precautions
Continue Tylenol 1000mg TID
Continue Oxycodone PRN
PT/OT consulted by primary team. Overall, large concern for continued falls and catastrophic fracture with high mortality risk given age and repeated falls.
Urinary Tract Infection
Urinalysis suspicious for UTI
Urine culture preliminary positive for E. Coli
Continue Unasyn
Essential Hypertension
Continue Norvasc, Losartan, Metoprolol
Hyperlipidemia
Continue atorvastatin
Pre-Diabetes
A1c 6.0
Continue diabetic diet
COPD without current Exacerbation
Continue Albuterol Nebs, Budesonide/Formoterol, Ipatropium/Albuterol
Respiratory insufficiency more likely secondary to aspiration pneumonia than COPD given her new O2 requirement only arose after vomiting episode
Anxiety/Depression
Continue Lexapro
Chronic Lower Extremity Edema
Per Vascular US on 03/31: No evidence of deep venous thrombosis in the visualized bilateral lower extremities as described above.
Continue Lasix
Obstructive Sleep Apnea
Patient's daughter to bring in CPAP from home
When I arrived, patient was sleeping comfortably and snoring without use of CPAP
Incidental Thyroid Nodule
Per CT Chest 03/31: Hypodense right thyroid lesion likely a benign thyroid nodule. Stable
Recommend follow up thyroid US as outpatient procedure
[2025-03-31] MEDS: LEXAPRO 10 MG PO (08:48)
--- NOTE | 2025-03-31 12:00 | PTCARENOTE ---
No major changes in physical assessment since am. Oral care completed multiple times. VS documented. Safe environment confirmed. Will continue to monitor.
--- NOTE | 2025-03-31 12:57 | W.PN.HOSP.TC ---
Today's Communication/Plan
-
Monitor vital signs
See plan
Continue with NG tube
N.p.o.
Continue with Unasyn
Follow cultures
Follow fever curve
Monitor mental status
Assessment / Plan
Assessment / Plan
General: Comfortable,lethargic
HEENT: Anicteric and Moist mucous membranes, +NGT
Respiratory: Clear and Non Labored Respirations
Cardiac: S1/S2 and Regular Rhythm
GI: Soft and Non Tender
Musculoskeletal: no edema
Neuro: Awake, Alert
Psych: Calm
Acute hypoxic respiratory failure likely secondary to aspiration pneumonia
[employer] 03/30 due to hypoxic respiratory failure, subsequently transferred to ICU
Sepsis likely secondary to above
Follow fever curve, monitor leukocytosis
Blood culture pending
Was initially placed on high flow, now down to 6 L nasal cannula
Wean oxygen as tolerated
Continue with Unasyn
CT chest negative for PE however did show right lower lobe pneumonia
Coffee-ground emesis
Drake's esophagus
GI following
Currently n.p.o. with NG tube
Continue PPI
Patient has previously denied EGD
Pelvic Fracture likely secondary to trauma and osteoporosis
Pelvic x-ray with mildly displaced left superior and inferior pubic rami fracture.
-Consult PT/OT
Continue Tylenol
Avoid oversedation from pain meds
Urinary tract infection
Urine culture with E. coli
Continue to monitor
Essential Hypertension
-Continue amlodipine, losartan and metoprolol
Hyperlipidemia
-Continue atorvastatin
Pre-Diabetes
-HgbA1c January 2025: 6.0
COPD, no acute exacerbation
-Continue Breo
Anxiety / Depression
-Continue Lexapro
Chronic Lower Extremity Edema
-Continue Lasix next ultrasound negative for DVT
Obstructive Sleep Apnea
-Daughter to bring patients CPAP
Incidental Thyroid Nodule
-Recommend thyroid ultrasound as outpatient
DVT proph: SCDs
Code Status: Full Code
I spent a total of 53 minutes with the patient or on the floor. More than 50% of this time involved counseling and coordination of care.
Anticipated Discharge: > 48 hours
Subjective/Interval History
-
Date of Service: March 31, 2025
NGT; denies sob
Objective Data
-
Labs:
Laboratory Results
03/31/25 03/31/25
04:13 14:00
WBC 21.2 H Pending
Hgb 12.4 Pending
Hct 36.7 L Pending
Plt Count 259 Pending
Sodium 139
Potassium 4.2
Chloride 105
Carbon Dioxide 28
BUN 13
Creatinine 0.6
Glucose 125 H
Calcium 8.4
Vital Signs:
Vital Signs
Temp Pulse Resp BP Pulse Ox
100.5 F H 95 21 133/54 98
03/31/25 11:36 03/31/25 11:15 03/31/25 11:15 03/31/25 11:00 03/31/25 08:15
I&O
03/30/25 03/31/25 04/01/25
06:59 06:59 06:59
Intake Total 685.0 / 685.0 225 / 225
Output Total 2528 / 2578 255 / 255
Balance -1843.0 / -1893.0 -30 / -30
--- NOTE | 2025-03-31 13:45 | PTCARENOTE ---
Pt's dtr at bedside...fully updated and all questions answered. Pt increasingly alert while dtr visiting. Repositioned q2h.
[2025-03-31 13:47] LABS: Hematocrit 35.5 % (37.0-47.0); Hemoglobin 11.7 g/dL (12.0-16.0); Mean Corp Hgb Conc. 33.0 g/dL (33.0-37.0); Mean Corpuscular Volume 93.4 fL (81.0-99.0); Platelet Count 221 10^3/uL (130-400); Red Cell Dist. Width 14.3 % (11.5-14.5)
--- NOTE | 2025-03-31 13:55 | CM ---
Initial assessment completed with daughter. Patient lives alone in a 2nd floor apartment at [facility] in elevator building, no steps. Patient uses a rollator for ambulation. She also has a SPC, transport cane and lift chair. She does not drive.
She has [facility] CUT OFF SAWYER daily from 8am to 8pm. They assist with ADL's, meals and chores. She also receives PT/OT through [facility]. Daughter is HC-POA. No VA benefits. No psychiatric hospitalizations. PCP is through [facility], Dr. Fernandez
Chong Jones. Pharmacy is [facility] at [facility]. Family is in the process of having patient transition to assisted living. Discharge POC: TBD. Anticipate SNF @ [facility]. Referral forwarded.
--- NOTE | 2025-03-31 14:25 | CM ---
Initial assessment completed with daughter. Patient lives alone in a 2nd floor apartment at [facility] in elevator building, no steps. Patient uses a rollator for ambulation. She also has a SPC, transport cane and lift chair. She does not drive.
She has [facility] ACID CONDITIONING WORKER daily from 8am to 8pm. They assist with ADL's, meals and chores. She also receives PT/OT through [facility]. Daughter is HC-POA. No VA benefits. No psychiatric hospitalizations. PCP is through [facility], Dr. Jim Schwarz
Robert. Pharmacy is [facility] at [facility]. Family is in the process of having patient transition to assisted living. Discharge POC: TBD. Anticipate SNF @ [facility]. Referral forwarded.
--- NOTE | 2025-03-31 16:00 | PTCARENOTE ---
Burst of afib noted on drafter (cad) electrical...max HR of 150-170. Pt sleeping...BP 147/66. HR 80's and NSR after 6-8 sec burst. Will continue to monitor.
--- NOTE | 2025-03-31 18:58 | PTCARENOTE ---
After 4hrs of NGT being clamped...20mls residual noted. NGT d/c'd. Diet advanced to clear liquids.
[2025-03-31] MEDS: SYMBICORT 160/4.5 MCG INHALER INH (20:20)
[2025-03-31] MEDS: MELATONIN 5 MG PO (21:57)
[2025-03-31] MEDS: NORVASC 5 MG PO (21:57)
[2025-04-01] VITALS (27 sets, daily range): BP systolic 97–169; BP diastolic 51–90; PULSE 104–110; O2SAT 96; BMI 24.2
[2025-04-01] MEDS: UNASYN IV ×4 (00:30→17:51)
[2025-04-01 03:50] LABS: Hematocrit 30.8 % (37.0-47.0); Hemoglobin 10.3 g/dL (12.0-16.0); Mean Corp Hgb Conc. 33.4 g/dL (33.0-37.0); Mean Corpuscular Volume 91.4 fL (81.0-99.0); Nucleated Red Blood Cells % 0 %; Platelet Count 184 10^3/uL (130-400); Red Cell Dist. Width 14.0 % (11.5-14.5)
[2025-04-01 04:16] LABS: ALT (SGPT) < 10 U/L (0-35); AST (SGOT) 16 U/L (14-36); Albumin 2.4 g/dl (3.5-5.0); Alkaline Phosphatase 103 U/L (38-126); Blood Urea Nitrogen 12 mg/dl (7-17); Calcium 7.1 mg/dl (8.4-10.2); Carbon Dioxide 28 mmol/L (22-30); Chloride 112 mmol/L (98-107); Estimated Creatinine Clearance 56 ml/min; Glucose 92 mg/dl (70-99); Magnesium 1.7 mg/dl (1.6-2.3); Potassium 3.0 mmol/L (3.5-5.1); Sodium 138 mmol/L (135-145); Total Protein 5.0 g/dl (6.3-8.2); eGFR > 60.00
--- NOTE | 2025-04-01 05:59 | PTCARENOTE ---
Pt on own CPAP overnight, initially with 2L bled in, now 6L. Pt desat to low 80s while asleep. Shallow respirations. Drowsy but easily arousable, follows commands, and takes deep breaths when instructed. Pulse ox 94% at this time. Safe environment
maintained, repositioned q2h.
[2025-04-01] MEDS: SYMBICORT 160/4.5 MCG INHALER 2 PUFF INH ×2 (07:34→19:28)
[2025-04-01] MEDS: KCL 40 MEQ PO (09:01)
[2025-04-01] MEDS: PROTONIX IV 40 MG IV ×2 (09:04→20:13)
[2025-04-01] MEDS: VITAMIN D3 (cholecalciferol) 25 MCG PO (09:05)
[2025-04-01] MEDS: NSS (PRESERVATIVE FREE) 10 ML IV ×2 (09:05→20:13)
[2025-04-01] MEDS: LACTAID 1 CAPSULE PO ×3 (09:05→15:34)
[2025-04-01] MEDS: COZAAR 100 MG PO (09:05)
[2025-04-01] MEDS: LEXAPRO 10 MG PO (09:05)
[2025-04-01] MEDS: TOPROL XL 25 MG PO (09:05)
[2025-04-01] MEDS: LIPITOR 10 MG PO (09:06)
[2025-04-01] MEDS: LASIX 20 MG PO (09:06)
[2025-04-01] MEDS: POTASSIUM PHOSPHATE 254.5455 MEQ IV (09:16)
[2025-04-01] MEDS: TYLENOL 650 MG PO ×2 (09:20→15:34)
--- NOTE | 2025-04-01 09:45 | PTCARENOTE ---
pt awake and alert , confused to time , forgetful , NSR - ST on monitor , BP adequate , lungs right diminished throughout , co pain with movement on L hip , tolerating clear liquid diet , no co nausea or vomiting , Wooten cath clear yellow plan to
remove later today , potassium 3.0 this am , Dr Ortiz notified , 40 oral KCL given and K phos repleted for phos level of 2.1 , pt now consulted with PT she is oob in chair with max x 2 assist , continues with IMU level of care
--- NOTE | 2025-04-01 09:55 | W.PN.PUL3 ---
Today's Communication / Plan
-
Continue antibiotics while trending WBC and monitoring temperature
Check sputum culture + urine antigens for Legionella + strep pneumonia
Treat fever with Tylenol
Continue with Symbicort
Start Mucinex
Continue Lasix
Up OOB as tolerated
Start flutter valve
Encourage incentive spirometer use
PPI 4 mg IV BID
PT/OT
Recommend YARN CLEANER consult
Pulmonary service will continue to follow along
Assessment
-
Impression:
#Acute hypoxic respiratory failure likely due to aspiration pneumonia
#Coffee-ground emesis with suspected upper GI bleed
#Leukocytosis
#Abnormal urinalysis with E. coli seen on urine culture suspected to be due to UTI (given patient dementia and no prior urine culture on record, unable to differentiate infection versus colonization)
#Small 3 mm distal right ureteral stone without hydroureteralnephrosis
#Hiatal hernia with an intrathoracic stomach + history of GERD/Drake's esophagus
#History of falls with acute pelvic fracture
#Hypertension
#Hyperlipidemia
#Prediabetes
#History of COPD (not currently in acute exacerbation
#KALI on CPAP (previously followed by [facility] via Dr. Thompson)
#Chronic lymphedema
#Thyroid nodule
Plan:
- Patient's hypoxia has markedly improved, now currently on 2L/min frm 6 L/min nasal cannula yesterday (03/31) after being on high flow nasal cannula at 100% FiO2, 50 L/min on 03/30 evening
- Continue to wean down supplemental O2 flow rate while maintaining SpO2 >90-94%
- Aspiration precautions, keeping HOB >30-45�
- Patient is on Breo 100mcg at home � continue with Symbicort 160 mcg while hospitalized with prn DuoNebs (not currently bronchospastic)
- Start mucinex
- Sport bed
- Oralpharyngeal suctioning as needed; may need to start vest therapy if she develops difficulty expectorating
- Pain control given her left-sided pelvic fractures; she also has a subacute right posterior second rib fracture
- Consider consult to orthopedics
- Ok to get up OOB as tolerated
- PT/OT
- Large bore IV x 1�2
- GI consulted
- Continue with PPI 40 mg IV BID
- NGT now off and pt is on regular diet - -> given her aspiration risk, need to have YARN CLEANER eval her
- Per GI, no plans for EGD as the patient's daughter is worried about giving the patient anesthesia in the setting of her age and dementia
- Trend Hb with serial CBC, transfusing as needed to keep Hb >7-8g/dL; keep plt >50k; hold antiplatelets/anticoagulants for now
- Continue iron supplementation TIW
- Maintain MAP>65
- Echo performed on 03/31/2025 showed normal LV size with LVEF 58%, also normal RV size/function, with normal RA, mild TR with moderately elevated PASP at 52 mmHg (no prior echo to assess chronicity)
- Lower extremity duplex on 03/31 was negative for DVT
- Continue empiric antibiotics given PNA and concern for UTI (UCx has grown bagley-sensitive E. coli)
- Follow-up blood cultures from admission (currently shows NGTD)
- Given that the patient has had a recurrent fever, check sputum culture if we can obtain decent sample; continue with antibiotics with no change as her WBC has improved and she clinically looks better
- Continue PO lasix (home med)
- Replete electrolytes with K>4, Mg>2
- Maintain euglycemia with goal BG 140-180; HbA1c: 6 on 01/19/2025
- Incentive spirometer encouraged 10x per hour for at least 4 hrs a day
- Outpatient thyroid imaging
- DVT ppx: SCDs for now given concern for an acute UGIB
On 03/31, Dr. Hernandez spoke to the patient's daughter, Lorraine, at bedside and had a thorough discussion of the patient's clinical status and plan as above (explained in layman's terms to her satisfaction). All questions were answered.
Pulmonary service will continue to briefly follow along.
Data:
CTA chest 03/31/2025: No gross PE. Small bilateral pleural effusions. Moderate right lower lobe airspace disease concerning for pneumonia. Bibasilar consolidation, likely atelectasis. Hypodense right thyroid lesion likely a benign thyroid
nodule. Intrathoracic stomach. Fluid-filled esophagus. Moderate age-indeterminate anterior wedge compression fracture of T11. Also subacute right posterior second rib fracture
CT abdomen/pelvis without contrast 03/31/2025: 3 mm distal right ureteral stone without signs of obstruction. Hypodense hepatic lesions likely cysts or hemangiomas. Diverticulosis. Moderate anterior wedge compression fracture of T11
(age-indeterminate). Acute left superior and inferior pubic ramus bone fractures. Small bilateral pleural effusions. Mild right lower lobe airspace disease concerning for pneumonia.
Total time spent today was 37 minutes for this encounter. Time includes reviewing laboratory test/imaging results, reviewing pertinent medical records, obtaining and reviewing medical history, performing an appropriate exam, ordering medications,
tests and procedures. Time also includes documentation of this encounter, coordinating patient care and communicating with other healthcare professionals. Total time does not include separately billed tests performed on this date of service.
Subjective Data
-
Date of Service:
Date of Service: April 01, 2025
Chief Complaint: Pulmonary Follow Up and Pneumonia Follow Up
Subjective:
Patient seen and evaluated this morning. She was spiking fevers yesterday up to 100.5 �F. She is currently sitting in a chair in no acute distress. She does have a wet sounding cough and she says she does not usually have a cough. She denies
having difficulty bringing up her phlegm. Currently on 2 L/min nasal cannula, saturating 94% with BP 114/61 and heart rate 93.
Review of Systems
General: Other (Negative unless mentioned above)
Objective Data
Data Reviewed
Vital Signs / I&O / Oxygen:
Vital Signs
Temp Pulse Resp BP Pulse Ox
100.6 F H 87 22 118/61 93
04/01/25 11:36 04/01/25 15:00 04/01/25 15:00 04/01/25 15:00 04/01/25 15:09
Intake and Output
03/31/25 04/01/25 04/02/25
06:59 06:59 06:59
Intake Total 685.0 / 685.0 495 / 495 900 / 900
Output Total 2528 / 2578 805 / 845 145 / 145
Balance -1843.0 / -1893.0 -310 / -350 755 / 755
SaO2 93
Nasal Cannula flow liters per 2
minute
Physical Exam
General: Respiratory Distress (negative), Comfortable and Sweats (negative)
HEENT: Normocephalic and Anicteric
Cardiovascular: S1-S2, Murmur (PHILLIP heard best at RUSB) and Peripheral Edema (negative)
Respiratory: Wheeze (negative), Crackles (Bilaterally (L >R)), Rhonchi (Bilaterally (L >R)), Non-Labored Respirations and Stridor (negative)
GI: Soft, Non Distended, Non Tender and Normal Bowel Sounds
Neurology: Awake, Alert and Tremors (negative)
Skin: Warm, Dry, Cyanosis (negative) and Jaundice (negative)
Labs/Micro/Reports
Lab Data
04/01/25 03:35
04/01/25 03:35
Microbiology
03/30/25 14:06 Urine Urine Culture - Final
Escherichia coli
03/30/25 23:37 Blood/Venous Blood Culture - Preliminary
No Growth in 24 hours- Final report to follow
03/30/25 23:37 Blood/Venous Blood Culture - Preliminary
No Growth in 24 hours- Final report to follow
03/30/25 23:37 Nasal Swab Influenza Types A & B (KAELYN) - Final
Negative for Influenza A & B, NAAT
Negative results must be combined with clinical observations
and patient history.
Nucleic Acid Amplification test (NAAT)performed on the
[employer] platform.
[2025-04-01] MEDS: FEOSOL 325 MG PO (10:00)
--- NOTE | 2025-04-01 12:12 | W.PN.GI.CBS2 ---
Today's Communication / Plan
-
No further vomiting
Advanced to regular diet
I discussed EGD with pt and daughter. They would prefer to hold off on EGD at age 89 and resolution of vomiting, which I agree with
Will sign off. Please call back if needed
Assessment / Plan
-
Pt is a 89yo with hx large HH per imaging, presents with fall. After admission patient was noted with acute hypoxemia with sat to 60's with tachycardia. She was noted with vomiting with placement of NGT with drainage of red/brown CGE with
concern for aspiration. CT and abd X ray as noted with large HH air distention in proximal colon, acute rami fracture along with other findings. In review of chart, pt was seen by Dr. Messer in May for + cologuard and AMELIA. She was
recommended EGD/colon but did not proceed. In review with family pt did not proceed as concern for anesthesia and cognitive impairment . She have fall last week and started taking Ibuprofen BID 600mg for a few days. Prior to admission pt was
also having diarrhea improved with lactate and was on chronic Omeprazole with controlled GERD. Hx EGD/colonoscopy in within last 10 years at [place] with [address] Messer. Per chart ? colon polyp and dwyer's.
Impression
-dark emesis with NGT placement with vomiting
-recent NSAID use s/p fall
-large HH
-hx AMELIA with chronic iron with normal Hbg
-abd X ray with air distention proximal colon
-rami fracture with recent falls
-hypoxemia with concern for aspiration
-leukocytosis
other med problems:
COPD, CAD, HTN, hypercholesterolemia, sleep apnea, pulm HTN, Dwyer's, GERD, colon polyps, AMELIA, cognitive impairment, anxiety/depression, arthritis, ambulatory dysfunction, prior cervical fracture
Subjective
Subjective
Date of Service: April 01, 2025
NGT removed. No further vomiting. Denies complaints
Objective
Data Reviewed
Laboratory Data:
Laboratory Results
04/01/25 03:35
04/01/25 03:35
Laboratory Results
PT 14.2 Sec (11.4-14.6) 03/30/25 22:20
INR 1.05 03/30/25 22:20
APTT 26.8 Sec (23.4-35.0) 03/30/25 22:20
Phosphorus 2.1 mg/dl (2.5-4.5) L 04/01/25 03:35
Magnesium 1.7 mg/dl (1.6-2.3) 04/01/25 03:35
Total Bilirubin 0.8 mg/dl (0.2-1.3) 04/01/25 03:35
AST 16 U/L (14-36) 04/01/25 03:35
ALT < 10 U/L (0-35) 04/01/25 03:35
Alkaline Phosphatase 103 U/L (38-126) 04/01/25 03:35
Vital Signs and I&O:
Vital Signs
Temp Pulse Resp BP Pulse Ox
100.6 F H 87 27 113/72 97
04/01/25 11:36 04/01/25 12:00 04/01/25 12:00 04/01/25 12:00 04/01/25 12:00
I&O
03/31/25 04/01/25 04/02/25
06:59 06:59 06:59
Intake Total 685.0 / 685.0 495 / 495 900 / 900
Output Total 2528 / 2578 805 / 845 145 / 145
Balance -1843.0 / -1893.0 -310 / -350 755 / 755
Physical Exam
Physical Exam
GI: Soft, Non Distended and Non Tender
--- NOTE | 2025-04-01 13:15 | W.PN.HOSP.TC ---
Today's Communication/Plan
-
Monitor vital signs see plan
Follow fever curve
Continue with Unasyn
Replete potassium, phosphorus
Wean oxygen as tolerated
Speech evaluation
Discussed with daughter
Assessment / Plan
Assessment / Plan
General: Comfortable,lethargic
HEENT: Anicteric and Moist mucous membranes
Respiratory: Clear and Non Labored Respirations
Cardiac: S1/S2 and Regular Rhythm
GI: Soft and Non Tender
Musculoskeletal: no edema
Neuro: Awake, Alert
Psych: Calm
Acute hypoxic respiratory failure likely secondary to aspiration pneumonia
DISTRICT SALES COORDINATOR 03/30 due to hypoxic respiratory failure, subsequently transferred to ICU
Sepsis likely secondary to above
Follow fever curve, monitor leukocytosis
Blood culture NGTD
Was initially placed on high flow, now down to 4 L nasal cannula. Wean oxygen as tolerated
Wean oxygen as tolerated
Continue with Unasyn
CT chest negative for PE however did show right lower lobe pneumonia
Coffee-ground emesis
Drake's esophagus
GI following
Now NG tube removed, GI discussed with patient and family and they do not want any intervention. Plan now for regular diet
Continue PPI
Patient has previously denied EGD
Pelvic Fracture likely secondary to trauma and osteoporosis
Pelvic x-ray with mildly displaced left superior and inferior pubic rami fracture.
PT OT recommending SNF
Continue Tylenol
Avoid oversedation from pain meds
Suspect urinary tract infection
Urine culture with E. coli
Continue to monitor
Essential Hypertension
-Continue amlodipine, losartan and metoprolol
Hypokalemia
Replete
Hypophosphatemia
Replete
Hyperlipidemia
-Continue atorvastatin
Pre-Diabetes
-HgbA1c January 2025: 6.0
COPD, no acute exacerbation
-Continue Breo
Anxiety / Depression
-Continue Lexapro
Chronic Lower Extremity Edema
-Continue Lasix
ultrasound negative for DVT
Obstructive Sleep Apnea
-Daughter to bring patients CPAP
Incidental Thyroid Nodule
-Recommend thyroid ultrasound as outpatient
DVT proph: SCDs
Code Status: Full Code
I spent a total of 52 minutes with the patient or on the floor. More than 50% of this time involved counseling and coordination of care.
Anticipated Discharge: > 48 hours
Subjective/Interval History
-
Date of Service: April 01, 2025
Denies pain
Objective Data
-
Labs:
Laboratory Results
04/01/25
03:35
WBC 14.2 H
Hgb 10.3 L
Hct 30.8 L
Plt Count 184
Sodium 138
Potassium 3.0 L D
Chloride 112 H
Carbon Dioxide 28
BUN 12
Creatinine 0.5 L
Glucose 92
Calcium 7.1 L
Total Bilirubin 0.8
AST 16
ALT < 10
Alkaline Phosphatase 103
Vital Signs:
Vital Signs
Temp Pulse Resp BP Pulse Ox
100.6 F H 87 27 113/72 97
04/01/25 11:36 04/01/25 12:00 04/01/25 12:00 04/01/25 12:00 04/01/25 12:00
I&O
03/31/25 04/01/25 04/02/25
06:59 06:59 06:59
Intake Total 685.0 / 685.0 495 / 495 900 / 900
Output Total 2528 / 2578 805 / 845 145 / 145
Balance -1843.0 / -1893.0 -310 / -350 755 / 755
--- NOTE | 2025-04-01 16:23 | PTOTSP ---
Speech Language Pathology
Pt seen for clinical bedside swallow evaluation. No hx of dysphagia per pt/daughter at bedside who is HUMAN RESOURCES BENEFITS ASSISTANT. P.O. trials of regular solids and thin liquids provided. Adequate mastication, bolus formation, and A-P transit noted with no oral
residue. No overt signs of aspiration.
Recommend:
(1) Regular solids/thin liquids
(2) General aspiration precautions
(3) Meds as tolerated
(4) SHIP PROPELLER FINISHER to sign off. Please reconsult as indicated
--- NOTE | 2025-04-01 16:43 | CM ---
Chart reviewed and patient and daughter are interested in skilled placement at the [facility], referral sent, need to follow up with admissions at [facility]
Plan; Skilled placement at [facility] when stable.
--- NOTE | 2025-04-01 17:46 | PTCARENOTE ---
pt now on reg diet tolerating well, she has been oob in chair all day with daughter visiting , she is now written for telemetry status
[2025-04-01] MEDS: MUCINEX 600 MG PO (20:13)
--- NOTE | 2025-04-01 20:40 | PTCARENOTE ---
Received patient oob to chair. Patient verbalized wanting to go back to bed. Encouraged the patient to utilize commode. Patient is a heavy assist with pivoting. unable to bare weight on her own. AAOx3 with intermittent forgetfulness. Plan of care
for the shift reviewed with the patient. Sinus rhythm on the monitor. Coarse breath sounds to 1/[address] up. SpO2 at 94% on 2/L o2 nc. IS max of 500 ml. +BS. Incontinent of urine. Had a moderate bm on the commode. Patient brushed her teeth and night
time care provided. PAtient assisted back to bed x3 assist. Scheduled medications administered. Bed alarm in use. Call palumbo is within reach.
[2025-04-01] MEDS: MELATONIN 5 MG PO (21:47)
[2025-04-01] MEDS: NORVASC 5 MG PO (21:47)
[2025-04-02] VITALS (14 sets, daily range): BP systolic 90–155; BP diastolic 60–78; BMI 24.3
[2025-04-02] MEDS: UNASYN IV ×5 (00:06→23:42)
--- NOTE | 2025-04-02 00:25 | PTCARENOTE ---
Patient refuses to keep her home CPAP on. Patient removes CPAP verbalizing that she cannot stand/tolerate it. Teaching provided on the need for the CPAP without success of pt continuing with therapy. Pt SpO2 decreases to 85%-86% on RA. Patient
placed on 4L/o2 nc and SpO2 at 94%. Pt's let forearm IV also noticed on the pt's side. Intermittent sinus tach that resolves. JAVA DEVELOPER CONSULTANT updated. Okay to keep the patient on nasal cannula at this time.
[2025-04-02 04:03] LABS: Hematocrit 33.8 % (37.0-47.0); Hemoglobin 10.7 g/dL (12.0-16.0); Mean Corp Hgb Conc. 31.7 g/dL (33.0-37.0); Mean Corpuscular Volume 94.4 fL (81.0-99.0); Nucleated Red Blood Cells % 0 %; Platelet Count 223 10^3/uL (130-400); Red Cell Dist. Width 14.0 % (11.5-14.5)
[2025-04-02 04:22] LABS: ALT (SGPT) 11 U/L (0-35); AST (SGOT) 18 U/L (14-36); Albumin 3.1 g/dl (3.5-5.0); Alkaline Phosphatase 118 U/L (38-126); Blood Urea Nitrogen 15 mg/dl (7-17); Calcium 8.5 mg/dl (8.4-10.2); Carbon Dioxide 25 mmol/L (22-30); Chloride 106 mmol/L (98-107); Estimated Creatinine Clearance 56 ml/min; Glucose 136 mg/dl (70-99); Potassium 4.4 mmol/L (3.5-5.1); Sodium 136 mmol/L (135-145); Total Protein 6.0 g/dl (6.3-8.2); eGFR > 60.00
[2025-04-02] MEDS: SYMBICORT 160/4.5 MCG INHALER 2 PUFF INH ×2 (07:20→19:50)
--- NOTE | 2025-04-02 07:39 | PTCARENOTE ---
0700 Assumed care. patient in bed. temd 98.9 PO; Awake, oriented to selft, time. Disoriented to place. BP via Rt upper arm: 139/68 MAP 88; Normal Sinus Rhythm 84; No edema + PP.
- On 4L via nasal canula. SpO2 decreased to 2L via nasal canula POx 93% RR 18;
call palumbo within reach
[2025-04-02] MEDS: TOPROL XL 25 MG PO (07:51)
[2025-04-02] MEDS: VITAMIN D3 (cholecalciferol) 25 MCG PO (07:51)
[2025-04-02] MEDS: MUCINEX 600 MG PO ×2 (07:51→20:52)
[2025-04-02] MEDS: LACTAID 1 CAPSULE PO ×3 (07:51→16:51)
[2025-04-02] MEDS: LEXAPRO 10 MG PO (07:52)
[2025-04-02] MEDS: COZAAR 100 MG PO (07:52)
[2025-04-02] MEDS: PROTONIX IV 40 MG IV ×2 (07:52→20:53)
[2025-04-02] MEDS: LIPITOR 10 MG PO (07:52)
[2025-04-02] MEDS: LASIX 20 MG PO (07:52)
[2025-04-02] MEDS: NSS (PRESERVATIVE FREE) 10 ML IV ×2 (07:52→20:53)
--- NOTE | 2025-04-02 09:06 | PTCARENOTE ---
Transfer:
Patient Transfer to room 336-1 via bed. Report given via phone. Message for Leny Horan left regarding transfer. patient Cpap will be transfer with patient
Awake and oriented to self and time. Disoriented of time. Denies pain.
Normal Sinus Rhythm 83 no edema
2L via nasal canula SpO2 93 Wheezing relieved post neb tx
Abdomen soft non tender BS present x 4 quadrants. Tolerating diet
Incontinent of urine
Peripheral line flushed capped
--- NOTE | 2025-04-02 11:44 | W.PN.HOSP.TC ---
Today's Communication/Plan
-
Monitor vitals
See plan
Continue with antibiotic
Monitor leukocytosis
PT recommending rehab, daughter agrees
Discussed with daughter
Assessment / Plan
Assessment / Plan
General: Comfortable
HEENT: Anicteric and Moist mucous membranes
Respiratory: Clear and Non Labored Respirations
Cardiac: S1/S2 and Regular Rhythm
GI: Soft and Non Tender
Musculoskeletal: no edema
Neuro: Awake, Alert
Psych: Calm
Acute hypoxic respiratory failure likely secondary to aspiration pneumonia
SEAT MENDER 03/30 due to hypoxic respiratory failure, subsequently transferred to ICU
Sepsis likely secondary to above
Follow fever curve, monitor leukocytosis
Blood culture NGTD
Was initially placed on high flow, now down to 2 L nasal cannula. Wean oxygen as tolerated
Wean oxygen as tolerated
Continue with Unasyn
CT chest negative for PE however did show right lower lobe pneumonia
Coffee-ground emesis
Drake's esophagus
GI following
Now NG tube removed, GI discussed with patient and family and they do not want any intervention. Plan now for regular diet
Continue PPI
Patient has previously denied EGD
Pelvic Fracture likely secondary to trauma and osteoporosis
Pelvic x-ray with mildly displaced left superior and inferior pubic rami fracture.
PT OT recommending SNF
Continue Tylenol
Avoid oversedation from pain meds
Suspect urinary tract infection
Urine culture with E. coli
Continue to monitor
Essential Hypertension
-Continue amlodipine, losartan and metoprolol
Hypokalemia
Replete
Hypophosphatemia
Replete
Hyperlipidemia
-Continue atorvastatin
Pre-Diabetes
-HgbA1c January 2025: 6.0
COPD, no acute exacerbation
-Continue Breo
Anxiety / Depression
-Continue Lexapro
Chronic Lower Extremity Edema
-Continue Lasix
ultrasound negative for DVT
Obstructive Sleep Apnea
-Daughter to bring patients CPAP
Incidental Thyroid Nodule
-Recommend thyroid ultrasound as outpatient
DVT proph: SCDs
Code Status: Full Code
Anticipated Discharge: 24 - 48 hours
Subjective/Interval History
-
Date of Service: April 02, 2025
denies pain
Objective Data
-
Labs:
Laboratory Results
04/02/25
03:33
WBC 14.9 H
Hgb 10.7 L
Hct 33.8 L
Plt Count 223 D
Sodium 136
Potassium 4.4 D
Chloride 106
Carbon Dioxide 25
BUN 15
Creatinine 0.6
Glucose 136 H
Calcium 8.5
Total Bilirubin 0.9
AST 18
ALT 11
Alkaline Phosphatase 118
Vital Signs:
Vital Signs
Temp Pulse Resp BP Pulse Ox
98.4 F 84 22 143/60 92
04/02/25 09:58 04/02/25 09:58 04/02/25 09:58 04/02/25 09:58 04/02/25 09:58
I&O
04/01/25 04/02/25 04/03/25
06:59 06:59 06:59
Intake Total 495 / 495 1200 / 1200
Output Total 805 / 845 145 / 145
Balance -310 / -350 1055 / 1055
[2025-04-02] MEDS: TYLENOL 650 MG PO (14:14)
[2025-04-02] MEDS: DUONEB 3 ML INH (14:39)
[2025-04-02] MEDS: LOPRESSOR 2.5 MG IV (15:20)
--- NOTE | 2025-04-02 16:00 | PTCARENOTE ---
HR up to 140s for few seconds at a time, then back down to 90s - pt sleeping while happening. TT Dr. Ortiz, ordered one time 2.5mg lopressor IV. Pt also becoming more confused, temp increasing but still afebrile, c/o headache. PRN tylenol provided.
--- NOTE | 2025-04-02 16:44 | W.PN.PUL3 ---
Today's Communication / Plan
-
Continue antibiotics while trending WBC and monitoring temperature
If possible, obtain sputum culture
Treat fever with Tylenol
Continue with Symbicort
Pulmonary toilet - Mucinex, flutter valve, CPT if needed with vest
Continue Lasix
Up OOB as tolerated
Encourage incentive spirometer use
PPI 40 mg IV BID - eventual TRX to PO PPI
Ok to start chemical DVT ppx tomorrow )04/03) if H/H remains stable
PT/OT
Diet as per ENRICHMENT TEACHER
No additional recommendations. Pulmonary will now sign off. Please call back with any questions or concerns.
Assessment
-
Impression:
#Acute hypoxic respiratory failure likely due to aspiration pneumonia
#Coffee-ground emesis with suspected upper GI bleed - resolved
#Leukocytosis
#Abnormal urinalysis with E. coli seen on urine culture suspected to be due to UTI (given patient dementia and no prior urine culture on record, unable to differentiate infection versus colonization)
#Small 3 mm distal right ureteral stone without hydroureteralnephrosis
#Hiatal hernia with an intrathoracic stomach + history of GERD/Drake's esophagus
#History of falls with acute pelvic fracture
#Hypertension
#Hyperlipidemia
#Prediabetes
#History of COPD (not currently in acute exacerbation
#KALI on CPAP (previously followed by [facility] via Dr. Thompson)
#Chronic lymphedema
#Thyroid nodule
Plan:
- Patient's hypoxia has markedly improved, now currently on 2-3L/min from 6 L/min nasal cannula on 03/31 after being on high flow nasal cannula at 100% FiO2, 50 L/min on 03/30 evening
- Continue to wean down supplemental O2 flow rate while maintaining SpO2 >90-94%
- Aspiration precautions, keeping HOB >30-45�
- Patient is on Breo 100mcg at home � continue with Symbicort 160 mcg while hospitalized with prn DuoNebs (not currently bronchospastic)
- Continue mucinex
- Shena-pharyngeal suctioning as needed; may need to start vest therapy if she develops difficulty expectorating
- Pain control given her left-sided pelvic fractures; she also has a subacute right posterior second rib fracture
- Consider consult to orthopedics
- Ok to get up OOB as tolerated
- PT/OT
- Large bore IV x 1�2
- GI consulted
- Continue with PPI 40 mg IV BID - eventually transition to PO PPI
- ENRICHMENT TEACHER evaluated the patient, recommended regular solids + thin liquids; ENRICHMENT TEACHER has signed off on 04/01
- Per GI, no plans for EGD as the patient's daughter is worried about giving the patient anesthesia in the setting of her age and dementia
- Trend Hb with serial CBC, transfusing as needed to keep Hb >7-8g/dL; keep plt >50k; hold antiplatelets/anticoagulants for now, although can start chemical DVT ppx tomorrow if Hb remains stable
- Continue iron supplementation TIW
- Maintain MAP>65
- Echo performed on 03/31/2025 showed normal LV size with LVEF 58%, also normal RV size/function, with normal RA, mild TR with moderately elevated PASP at 52 mmHg (no prior echo to assess chronicity)
- Lower extremity duplex on 03/31 was negative for DVT
- Continue empiric antibiotics given PNA and concern for UTI (UCx has grown bagley-sensitive E. coli)
- Follow-up blood cultures from admission (currently shows NGTD)
- Given that the patient has had a recurrent fever, check sputum culture if we can obtain decent sample; continue with antibiotics with no change as her WBC has improved and she clinically looks better
- Continue PO lasix (home med)
- Replete electrolytes with K>4, Mg>2
- Maintain euglycemia with goal BG 140-180; HbA1c: 6 on 01/19/2025
- Incentive spirometer encouraged 10x per hour for at least 4 hrs a day
- Outpatient thyroid imaging
- DVT ppx: SCDs for now given concern for an acute UGIB; okay to start chemical DVT prophylaxis tomorrow if H&H remained stable
On 03/31, Dr. Hernandez spoke to the patient's daughter, Lorraine, at bedside and had a thorough discussion of the patient's clinical status and plan as above (explained in layman's terms to her satisfaction). All questions were answered.
No additional recommendations at this time. Pulmonary service will now sign off. Please call back with any questions or concerns. She had previously followed at [facility] for her sleep apnea, and she was recommended to see them again following
discharge; alternatively she can follow-up in the [facility] office with me.
Data:
CTA chest 03/31/2025: No gross PE. Small bilateral pleural effusions. Moderate right lower lobe airspace disease concerning for pneumonia. Bibasilar consolidation, likely atelectasis. Hypodense right thyroid lesion likely a benign thyroid
nodule. Intrathoracic stomach. Fluid-filled esophagus. Moderate age-indeterminate anterior wedge compression fracture of T11. Also subacute right posterior second rib fracture
CT abdomen/pelvis without contrast 03/31/2025: 3 mm distal right ureteral stone without signs of obstruction. Hypodense hepatic lesions likely cysts or hemangiomas. Diverticulosis. Moderate anterior wedge compression fracture of T11
(age-indeterminate). Acute left superior and inferior pubic ramus bone fractures. Small bilateral pleural effusions. Mild right lower lobe airspace disease concerning for pneumonia.
(Patient was seen and evaluated on 04/02/2025) Total time spent today was 28 minutes for this encounter. Time includes reviewing laboratory test/imaging results, reviewing pertinent medical records, obtaining and reviewing medical history,
performing an appropriate exam, ordering medications, tests and procedures. Time also includes documentation of this encounter, coordinating patient care and communicating with other healthcare professionals. Total time does not include separately
billed tests performed on this date of service.
Subjective Data
-
Date of Service:
Date of Service: April 02, 2025
Chief Complaint: Pulmonary Follow Up and Pneumonia Follow Up
Subjective:
Patient seen this morning (late entry). She looks good, denies shortness of breath or chest pain. Breathing comfortably on 3 L/min nasal cannula.
Review of Systems
General: Other (Negative unless mentioned above)
Objective Data
Data Reviewed
Vital Signs / I&O / Oxygen:
Vital Signs
Temp Pulse Resp BP Pulse Ox
98.4 F 84 22 143/60 92
04/02/25 09:58 04/02/25 09:58 04/02/25 09:58 04/02/25 09:58 04/02/25 09:58
Intake and Output
04/01/25 04/02/25 04/03/25
06:59 06:59 06:59
Intake Total 495 / 495 1200 / 1200
Output Total 805 / 845 145 / 145
Balance -310 / -350 1055 / 1055
SaO2 92
Nasal Cannula flow liters per 1.5
minute
Physical Exam
General: Respiratory Distress (negative), Comfortable and Sweats (negative)
HEENT: Normocephalic and Anicteric
Cardiovascular: S1-S2, Murmur (PHILLIP heard best at RUSB) and Peripheral Edema (negative)
Respiratory: Wheeze (negative), Crackles (Bilaterally (L >R)), Rhonchi (Bilaterally (L >R)), Non-Labored Respirations and Stridor (negative)
GI: Soft, Non Distended, Non Tender and Normal Bowel Sounds
Neurology: Awake, Alert and Tremors (negative)
Skin: Warm, Dry, Cyanosis (negative) and Jaundice (negative)
Labs/Micro/Reports
Lab Data
04/02/25 03:33
04/02/25 03:33
Microbiology
03/30/25 23:37 Blood/Venous Blood Culture - Preliminary
No Growth in 48 hours- Final report to follow
03/30/25 23:37 Blood/Venous Blood Culture - Preliminary
No Growth in 48 hours- Final report to follow
03/30/25 14:06 Urine Urine Culture - Final
Escherichia coli
03/30/25 23:37 Nasal Swab Influenza Types A & B (KAELYN) - Final
Negative for Influenza A & B, NAAT
Negative results must be combined with clinical observations
and patient history.
Nucleic Acid Amplification test (NAAT)performed on the
[employer] platform.
[2025-04-02] MEDS: TORADOL 15 MG IV (16:50)
--- NOTE | 2025-04-02 17:00 | PTCARENOTE ---
Temp up to 101.0 despite Tylenol adminstration earlier. Continues to be tachy for short frequent periods. TT to cross coverage. Pt packed with ice packs. Ordered one time toradol and EKG. EKG read SR with PACs, toradol provided. Dgtr updated over
phone.
[2025-04-02] MEDS: MELATONIN 5 MG PO (22:35)
[2025-04-02] MEDS: NORVASC 5 MG PO (22:35)
[2025-04-03] VITALS (8 sets, daily range): BP systolic 125–146; BP diastolic 63–79; PULSE 93; O2SAT 91
[2025-04-03] MEDS: UNASYN IV ×4 (05:04→23:04)
[2025-04-03] MEDS: SYMBICORT 160/4.5 MCG INHALER 2 PUFF INH ×2 (07:39→19:20)
[2025-04-03] MEDS: LACTAID 1 CAPSULE PO ×3 (08:38→17:02)
[2025-04-03] MEDS: LIPITOR 10 MG PO (08:38)
[2025-04-03] MEDS: VITAMIN D3 (cholecalciferol) 25 MCG PO (08:38)
[2025-04-03] MEDS: MUCINEX 600 MG PO ×2 (08:38→20:04)
[2025-04-03] MEDS: LEXAPRO 10 MG PO (08:38)
[2025-04-03] MEDS: COZAAR 100 MG PO (08:38)
[2025-04-03] MEDS: LASIX 20 MG PO (08:39)
[2025-04-03] MEDS: PROTONIX IV 40 MG IV ×2 (08:40→20:05)
[2025-04-03] MEDS: NSS (PRESERVATIVE FREE) 10 ML IV ×2 (08:40→20:05)
[2025-04-03] MEDS: TOPROL XL 25 MG PO (08:42)
[2025-04-03 10:14] LABS: Hematocrit 33.2 % (37.0-47.0); Hemoglobin 11.2 g/dL (12.0-16.0); Mean Corp Hgb Conc. 33.7 g/dL (33.0-37.0); Mean Corpuscular Volume 89.2 fL (81.0-99.0); Nucleated Red Blood Cells % 0 %; Platelet Count 243 10^3/uL (130-400); Red Cell Dist. Width 13.4 % (11.5-14.5)
[2025-04-03 10:37] LABS: ALT (SGPT) 12 U/L (0-35); AST (SGOT) 18 U/L (14-36); Albumin 3.0 g/dl (3.5-5.0); Alkaline Phosphatase 118 U/L (38-126); Blood Urea Nitrogen 11 mg/dl (7-17); Calcium 8.5 mg/dl (8.4-10.2); Carbon Dioxide 26 mmol/L (22-30); Chloride 104 mmol/L (98-107); Estimated Creatinine Clearance 56 ml/min; Glucose 148 mg/dl (70-99); Potassium 3.2 mmol/L (3.5-5.1); Sodium 134 mmol/L (135-145); Total Protein 6.1 g/dl (6.3-8.2); eGFR > 60.00
--- NOTE | 2025-04-03 11:26 | W.PN.HOSP.TC ---
Today's Communication/Plan
-
Monitor vital signs and see plan
Continue with Unasyn
Follow fever curve
Lovenox for DVT prophylaxis
PT/OT
Needs SNF on dc
Assessment / Plan
Assessment / Plan
General: Comfortable
HEENT: Anicteric and Moist mucous membranes
Respiratory: Clear and Non Labored Respirations
Cardiac: S1/S2 and Regular Rhythm
GI: Soft and Non Tender
Musculoskeletal: no edema
Neuro: Awake, Alert
Psych: Calm
Acute hypoxic respiratory failure likely secondary to aspiration pneumonia
SHIP PROPELLER FINISHER 03/30 due to hypoxic respiratory failure, subsequently transferred to ICU
Sepsis likely secondary to above
Follow fever curve, monitor leukocytosis
Blood culture NGTD
Was initially placed on high flow, now down to 2 L nasal cannula. Wean oxygen as tolerated
Wean oxygen as tolerated
Continue with Unasyn; follow fever curve
CT chest negative for PE however did show right lower lobe pneumonia
Coffee-ground emesis
Drake's esophagus
GI following
Now NG tube removed, GI discussed with patient and family and they do not want any intervention. Plan now for regular diet
Continue PPI
Patient has previously denied EGD
Pelvic Fracture likely secondary to trauma and osteoporosis
Pelvic x-ray with mildly displaced left superior and inferior pubic rami fracture.
PT OT recommending SNF
Continue Tylenol
Avoid oversedation from pain meds
Suspect urinary tract infection
Urine culture with E. coli
Continue to monitor
Essential Hypertension
-Continue amlodipine, losartan and metoprolol
Hypokalemia
Replete
Hypophosphatemia
Repleted
Hyperlipidemia
-Continue atorvastatin
Pre-Diabetes
-HgbA1c January 2025: 6.0
COPD, no acute exacerbation
-Continue Breo
Anxiety / Depression
-Continue Lexapro
Chronic Lower Extremity Edema
-Continue Lasix
ultrasound negative for DVT
Obstructive Sleep Apnea
-Daughter to bring patients CPAP
Incidental Thyroid Nodule
-Recommend thyroid ultrasound as outpatient
DVT proph: SCDs,lovenox
Code Status: Full Code
Anticipated Discharge: Within 24 hours
Subjective/Interval History
-
Date of Service: April 03, 2025
denies pain
Objective Data
-
Labs:
Laboratory Results
04/03/25
09:48
WBC 11.9 H
Hgb 11.2 L
Hct 33.2 L
Plt Count 243
Sodium 134 L
Potassium 3.2 L D
Chloride 104
Carbon Dioxide 26
BUN 11
Creatinine 0.5 L
Glucose 148 H
Calcium 8.5
Total Bilirubin 0.8
AST 18
ALT 12
Alkaline Phosphatase 118
Vital Signs:
Vital Signs
Temp Pulse Resp BP Pulse Ox
98.4 F 80 18 146/66 93
04/03/25 07:30 04/03/25 07:40 04/03/25 07:40 04/03/25 07:30 04/03/25 08:15
I&O
04/02/25 04/03/25 04/04/25
06:59 06:59 06:59
Intake Total 1200 / 1200 720 / 720
Output Total 145 / 145
Balance 1055 / 1055 720 / 720
[2025-04-03] MEDS: KCL 40 MEQ PO (12:07)
[2025-04-03] MEDS: LOVENOX 40 MG SC (17:02)
[2025-04-03] MEDS: NORVASC 5 MG PO (21:22)
[2025-04-03] MEDS: MELATONIN 5 MG PO (21:22)
[2025-04-03] MEDS: TYLENOL 650 MG PO (23:02)
[2025-04-04] VITALS (8 sets, daily range): BP systolic 119–147; BP diastolic 61–86; PULSE 76; O2SAT 94
[2025-04-04 05:41] LABS: Hematocrit 31.4 % (37.0-47.0); Hemoglobin 10.3 g/dL (12.0-16.0); Mean Corp Hgb Conc. 32.8 g/dL (33.0-37.0); Mean Corpuscular Volume 92.6 fL (81.0-99.0); Nucleated Red Blood Cells % 0 %; Platelet Count 231 10^3/uL (130-400); Red Cell Dist. Width 13.7 % (11.5-14.5)
[2025-04-04] MEDS: UNASYN IV ×3 (05:59→18:22)
[2025-04-04 06:02] LABS: ALT (SGPT) 15 U/L (0-35); AST (SGOT) 21 U/L (14-36); Albumin 2.7 g/dl (3.5-5.0); Alkaline Phosphatase 106 U/L (38-126); Blood Urea Nitrogen 9 mg/dl (7-17); Calcium 8.3 mg/dl (8.4-10.2); Carbon Dioxide 27 mmol/L (22-30); Chloride 106 mmol/L (98-107); Estimated Creatinine Clearance 56 ml/min; Glucose 111 mg/dl (70-99); Magnesium 1.7 mg/dl (1.6-2.3); Potassium 3.8 mmol/L (3.5-5.1); Sodium 136 mmol/L (135-145); Total Protein 5.5 g/dl (6.3-8.2); eGFR > 60.00
[2025-04-04] MEDS: SYMBICORT 160/4.5 MCG INHALER 2 PUFF INH ×2 (08:03→19:27)
[2025-04-04] MEDS: NSS (PRESERVATIVE FREE) 10 ML IV ×2 (09:40→21:18)
[2025-04-04] MEDS: PROTONIX IV 40 MG IV ×2 (09:40→21:18)
[2025-04-04] MEDS: COZAAR 100 MG PO (09:41)
[2025-04-04] MEDS: LIPITOR 10 MG PO (09:41)
[2025-04-04] MEDS: LACTAID 1 CAPSULE PO ×3 (09:41→18:22)
[2025-04-04] MEDS: LEXAPRO 10 MG PO (09:41)
[2025-04-04] MEDS: LASIX 20 MG PO (09:41)
[2025-04-04] MEDS: MUCINEX 600 MG PO ×2 (09:41→21:18)
[2025-04-04] MEDS: TOPROL XL 25 MG PO (09:41)
[2025-04-04] MEDS: VITAMIN D3 (cholecalciferol) 25 MCG PO (09:42)
[2025-04-04] MEDS: FEOSOL 325 MG PO (09:43)
--- NOTE | 2025-04-04 09:50 | W.PN.HOSP.TC ---
Today's Communication/Plan
-
Updated daughter
start Valacyclovir
Chest x ray
Isolation
Assessment / Plan
Assessment / Plan
Physical exam:
General: Comfortable, coughing
HEENT: Anicteric and Moist mucous membranes
Respiratory: limited with rales at bases R>L
Cardiac: S1/S2
GI: Soft and Non Tender
Skin: blister lesion on left breast
Musculoskeletal: no edema
Neuro: Awake, Alert
Psych: Calm
Acute hypoxic respiratory failure likely secondary to aspiration pneumonia
CORNICE MAKER 03/30 due to hypoxic respiratory failure, subsequently transferred to ICU
Sepsis likely secondary to above
Follow fever curve, monitor leukocytosis
Blood culture NGTD
Was initially placed on high flow, now down to 3 L nasal cannula. Wean oxygen as tolerated
Wean oxygen as tolerated
Continue with Unasyn; follow fever curve
Repeat chest x ray
CT chest negative for PE however did show right lower lobe pneumonia
# Acute shingles
on left breast
Some discomfort/ burning. Active stage
Isolation
Start Valacyclovir 1 gm TID
Coffee-ground emesis
Drake's esophagus
GI following
Now NG tube removed, GI discussed with patient and family and they do not want any intervention. Plan now for regular diet
Continue PPI
Patient has previously denied EGD
Pelvic Fracture likely secondary to trauma and osteoporosis
Pelvic x-ray with mildly displaced left superior and inferior pubic rami fracture.
PT OT recommending SNF
Continue Tylenol
Avoid oversedation from pain meds
Suspect urinary tract infection
Urine culture with E. coli
Continue to monitor
Essential Hypertension
-Continue amlodipine, losartan and metoprolol
Hypokalemia
Replete
Hypophosphatemia
Repleted
Hyperlipidemia
-Continue atorvastatin
Pre-Diabetes
-HgbA1c January 2025: 6.0
COPD, no acute exacerbation
-Continue Breo
Anxiety / Depression
-Continue Lexapro
Chronic Lower Extremity Edema
-Continue Lasix
ultrasound negative for DVT
Obstructive Sleep Apnea
-Daughter to bring patients CPAP
Incidental Thyroid Nodule
-Recommend thyroid ultrasound as outpatient
DVT proph: SCDs,Lovenox
Code Status: Full Code
Total time spent to see the patient, examined the patient, review data and lab result, discuss treatment plan with patient, daughter, nursing staff around 55 minutes
Anticipated Discharge: 24 - 48 hours
Subjective/Interval History
-
Date of Service: April 04, 2025
She denies pain issues, still cough
Objective Data
-
Labs:
Laboratory Results
04/04/25
05:24
WBC 10.2
Hgb 10.3 L
Hct 31.4 L
Plt Count 231
Sodium 136
Potassium 3.8
Chloride 106
Carbon Dioxide 27
BUN 9
Creatinine 0.5 L
Glucose 111 H
Calcium 8.3 L
Total Bilirubin 0.4
AST 21
ALT 15
Alkaline Phosphatase 106
Vital Signs:
Vital Signs
Temp Pulse Resp BP Pulse Ox
97.9 F 68 16 140/69 94
04/04/25 07:00 04/04/25 08:06 04/04/25 08:06 04/04/25 07:00 04/04/25 08:06
I&O
04/03/25 04/04/25 04/05/25
06:59 06:59 06:59
Intake Total 720 / 720 600 / 600
Balance 720 / 720 600 / 600
[2025-04-04] MEDS: VALTREX 1000 MG PO ×2 (15:18→21:19)
[2025-04-04] MEDS: TYLENOL 650 MG PO (15:50)
[2025-04-04] MEDS: LOVENOX 40 MG SC (18:22)
[2025-04-04] MEDS: NORVASC 5 MG PO (21:19)
[2025-04-04] MEDS: MELATONIN 5 MG PO (21:19)
[2025-04-05] MEDS: UNASYN IV ×3 (00:47→11:29)
[2025-04-05 03:00] VITALS: BP 154/77
[2025-04-05] MEDS: SYMBICORT 160/4.5 MCG INHALER 2 PUFF INH ×2 (07:43→19:10)
[2025-04-05 07:55] VITALS: BP 142/70
[2025-04-05] MEDS: TOPROL XL 25 MG PO (08:45)
[2025-04-05] MEDS: VITAMIN D3 (cholecalciferol) 25 MCG PO (08:45)
[2025-04-05] MEDS: LIPITOR 10 MG PO (08:46)
[2025-04-05] MEDS: LEXAPRO 10 MG PO (08:46)
[2025-04-05] MEDS: COZAAR 100 MG PO (08:46)
[2025-04-05] MEDS: VALTREX 1000 MG PO ×3 (08:46→21:22)
[2025-04-05] MEDS: LACTAID 1 CAPSULE PO ×3 (08:47→17:27)
[2025-04-05] MEDS: LASIX 20 MG PO ×2 (08:47→17:30)
[2025-04-05] MEDS: MUCINEX 600 MG PO ×2 (08:47→20:23)
[2025-04-05] MEDS: PROTONIX IV 40 MG IV (08:49)
[2025-04-05] MEDS: NSS (PRESERVATIVE FREE) 10 ML IV (08:49)
--- NOTE | 2025-04-05 09:35 | W.PN.HOSP.TC ---
Addendum entered and electronically signed by Emmie Lang MD 04/05/25 13:09:
Addendum
Updated daughter, likely dc in am
Hope to wean off nasalO2
End
Original Note:
Today's Communication/Plan
-
Change to oral Augmentin
change to oral PPI
Likely dc in am
Assessment / Plan
Assessment / Plan
Physical exam:
General: Comfortable, coughing
HEENT: Anicteric and Moist mucous membranes
Respiratory: limited with rales at bases R>L
Cardiac: S1/S2
GI: Soft and Non Tender
Skin: blister lesion on left breast
Musculoskeletal: no edema
Neuro: Awake, Alert
Psych: Calm
Acute hypoxic respiratory failure likely secondary to aspiration pneumonia
LOFT WORKER 03/30 due to hypoxic respiratory failure, subsequently transferred to ICU
Sepsis likely secondary to above
Follow fever curve, monitor leukocytosis
Blood culture NGTD
Was initially placed on high flow, now down to 3 L nasal cannula. Wean oxygen as tolerated
Wean oxygen as tolerated
Continue with Unasyn; follow fever curve, change to oral Augmentin to finish 10 days course .
Repeat chest x ray showed right lower PNA
CT chest negative for PE however did show right lower lobe pneumonia
# Acute shingles
on left breast
Less discomfort/ burning. Active stage
Isolation as standard precautions
Started Valacyclovir 1 gm TID
Coffee-ground emesis
Drake's esophagus
GI followed
Now NG tube removed, GI discussed with patient and family and they do not want any intervention. Plan now for regular diet
Continue PPI
Patient has previously denied EGD
Pelvic Fracture likely secondary to trauma and osteoporosis
Pelvic x-ray with mildly displaced left superior and inferior pubic rami fracture.
PT OT recommending SNF
Continue Tylenol
Avoid oversedation from pain meds
E Coli t urinary tract infection
Urine culture with E. coli
On ABx.
Essential Hypertension
-Continue amlodipine, losartan and metoprolol
Hypokalemia
Replete
Hypophosphatemia
Repleted
Hyperlipidemia
-Continue atorvastatin
Pre-Diabetes
-HgbA1c January 2025: 6.0
COPD, no acute exacerbation
-Continue Breo
Anxiety / Depression
-Continue Lexapro
Chronic Lower Extremity Edema
-Continue Lasix
ultrasound negative for DVT
Obstructive Sleep Apnea
-Daughter to bring patients CPAP
Incidental Thyroid Nodule
-Recommend thyroid ultrasound as outpatient
DVT proph: SCDs,Lovenox
Code Status: Full Code
Total time spent to see the patient, examined the patient, review data and lab result, discuss treatment plan with patient, daughter, nursing staff around 55 minutes
Anticipated Discharge: Within 24 hours
Subjective/Interval History
-
Date of Service: April 05, 2025
No complaints
Objective Data
-
Vital Signs:
Vital Signs
Temp Pulse Resp BP Pulse Ox
97.8 F 85 20 142/70 92
04/05/25 07:55 04/05/25 07:55 04/05/25 07:55 04/05/25 07:55 04/05/25 07:55
I&O
04/04/25 04/05/25 04/06/25
06:59 06:59 06:59
Intake Total 600 / 600 1440 / 1440
Balance 600 / 600 1440 / 1440
[2025-04-05 11:44] VITALS: BP 116/61
--- NOTE | 2025-04-05 12:04 | CM ---
As per RN removed from Isolation discontinued.
Monika from [facility] confirms a bed ready.
Will need ambulance
Will need auth with Heather from [employer] .
[facility]
report [phone]
fax [phone]
PLAN [address] [facility] after auth and medically ready
--- NOTE | 2025-04-05 14:10 | PTCARENOTE ---
pt with no complaints, tolerating diet, sat oob in chair for about 2 hours, continent of black, tarry stools in bsc. shingles rash under left breast covered with dressing and per Hansa McEnrue pt can be standard precautions if can be covered.
vss, will continue to monitor.
[2025-04-05 15:00] VITALS: BP 137/72
[2025-04-05] MEDS: LOVENOX 40 MG SC (17:36)
[2025-04-05 19:39] VITALS: BP 138/73
[2025-04-05] MEDS: AUGMENTIN 875 MG/125 MG 1 TABLET PO (20:23)
--- NOTE | 2025-04-05 21:04 | PTCARENOTE ---
Oral care was not performed on patient because she stated that it was done earlier this afternoon and that it was preference to brush her teeth in the morning.
[2025-04-05] MEDS: MELATONIN 5 MG PO (21:21)
[2025-04-05] MEDS: NORVASC 5 MG PO (21:22)
[2025-04-05] MEDS: TYLENOL 650 MG PO (21:48)
[2025-04-05 22:53] VITALS: BP 141/62
[2025-04-06 03:07] VITALS: BP 145/67
[2025-04-06 07:00] VITALS: BP 127/79
[2025-04-06] MEDS: AUGMENTIN 875 MG/125 MG 1 TABLET PO ×2 (07:35→20:30)
[2025-04-06] MEDS: LEXAPRO 10 MG PO (07:36)
[2025-04-06] MEDS: LIPITOR 10 MG PO (07:36)
[2025-04-06] MEDS: PROTONIX 40 MG PO (07:36)
[2025-04-06] MEDS: MUCINEX 600 MG PO (07:36)
[2025-04-06] MEDS: LACTAID 1 CAPSULE PO ×3 (07:43→15:58)
[2025-04-06] MEDS: FEOSOL 325 MG PO (07:43)
[2025-04-06] MEDS: COZAAR 100 MG PO (07:45)
[2025-04-06] MEDS: LASIX 20 MG PO (07:45)
[2025-04-06] MEDS: TOPROL XL 25 MG PO (07:45)
[2025-04-06] MEDS: VALTREX 1000 MG PO ×3 (07:48→20:31)
[2025-04-06] MEDS: VITAMIN D3 (cholecalciferol) 25 MCG PO (07:48)
[2025-04-06] MEDS: SYMBICORT 160/4.5 MCG INHALER 2 PUFF INH ×2 (07:54→19:54)
--- NOTE | 2025-04-06 09:41 | W.PN.HOSP.TC ---
Today's Communication/Plan
-
DC planning
Unable to wean off oxygen
Assessment / Plan
Assessment / Plan
Physical exam:
General: Comfortable, coughing
HEENT: Anicteric and Moist mucous membranes
Respiratory: limited with rales at bases R>L
Cardiac: S1/S2
GI: Soft and Non Tender
Skin: vesicular rash on left breast
Musculoskeletal: no edema
Neuro: Awake, Alert
Psych: Calm
Acute hypoxic respiratory failure likely secondary to aspiration pneumonia
SENIOR RESEARCH SCIENTIST 03/30 due to hypoxic respiratory failure, subsequently transferred to ICU
Sepsis likely secondary to above
Follow fever curve, monitor leukocytosis
Blood culture NGTD
Was initially placed on high flow, now down to 3 L nasal cannula. Wean oxygen as tolerated
Wean oxygen as tolerated
Continue with Unasyn; follow fever curve, change to oral Augmentin to finish 10 days course .
Repeat chest x ray showed right lower PNA
CT chest negative for PE however did show right lower lobe pneumonia
# Acute shingles
on left breast
Less discomfort/ burning, does not feel it is significant pain.
Isolation as standard precautions
Started Valacyclovir 1 gm TID for 5 days.
Coffee-ground emesis
Drake's esophagus
GI followed
Now NG tube removed, GI discussed with patient and family and they do not want any intervention. Plan now for regular diet
Continue PPI, changed to oral
Patient has previously denied EGD
Pelvic Fracture likely secondary to trauma and osteoporosis
Pelvic x-ray with mildly displaced left superior and inferior pubic rami fracture.
PT OT recommending SNF
Continue Tylenol
Avoid oversedation from pain meds
E Coli t urinary tract infection
Urine culture with E. coli
On ABx.
Essential Hypertension
-Continue amlodipine, losartan and metoprolol
Hypokalemia
Replete
Hypophosphatemia
Repleted
Hyperlipidemia
-Continue atorvastatin
Pre-Diabetes
-HgbA1c January 2025: 6.0
COPD, no acute exacerbation
-Continue Breo
Anxiety / Depression
-Continue Lexapro
Chronic Lower Extremity Edema
-Continue Lasix
ultrasound negative for DVT
Obstructive Sleep Apnea
-Daughter to bring patients CPAP
Incidental Thyroid Nodule
-Recommend thyroid ultrasound as outpatient
DVT proph: SCDs,Lovenox
Code Status: Full Code
Total time spent to see the patient, examined the patient, review data and lab result, discuss treatment plan with patient, daughter, nursing staff around 55 minutes
Anticipated Discharge: Today
Subjective/Interval History
-
Date of Service: April 06, 2025
No complaints
No chest pain or sob
She slept well
Objective Data
-
Vital Signs:
Vital Signs
Temp Pulse Resp BP Pulse Ox
98.9 F 73 20 127/79 95
04/06/25 07:00 04/06/25 07:57 04/06/25 07:57 04/06/25 07:45 04/06/25 07:57
I&O
04/05/25 04/06/25 04/07/25
06:59 06:59 06:59
Intake Total 1440 / 1440 1440 / 1440
Balance 1440 / 1440 1440 / 1440
[2025-04-06 11:00] VITALS: BP 127/62
--- NOTE | 2025-04-06 12:01 | CM ---
Monika from [facility] confirms a bed ready tomorrow.
Will need ambulance Medical nec form completed.
Will need auth with Heather from [employer] .
Requested Covid test as per Monika.
[facility]
report [phone]
fax [phone]
PLAN to [facility] after auth
[2025-04-06 12:02] LABS: COVID-19 Antigen Negative (Negative)
[2025-04-06 12:26] VITALS: BP 139/72; PULSE 87; O2SAT 93; O2SAT 94
[2025-04-06 15:00] VITALS: BP 125/69
[2025-04-06] MEDS: LOVENOX 40 MG SC (17:20)
[2025-04-06] MEDS: MELATONIN 5 MG PO (20:30)
[2025-04-06] MEDS: NORVASC 5 MG PO (20:31)
[2025-04-06 23:00] VITALS: BP 133/66
[2025-04-07 07:00] VITALS: BP 147/69
[2025-04-07] MEDS: SYMBICORT 160/4.5 MCG INHALER 2 PUFF INH (07:55)
[2025-04-07 08:12] VITALS: BMI 24.3
[2025-04-07] MEDS: TOPROL XL 25 MG PO (08:51)
[2025-04-07] MEDS: AUGMENTIN 875 MG/125 MG 1 TABLET PO (08:52)
[2025-04-07] MEDS: VALTREX 1000 MG PO (08:53)
[2025-04-07] MEDS: COZAAR 100 MG PO (08:53)
[2025-04-07] MEDS: VITAMIN D3 (cholecalciferol) 25 MCG PO (08:54)
[2025-04-07] MEDS: PROTONIX 40 MG PO (08:54)
[2025-04-07] MEDS: LACTAID 1 CAPSULE PO ×2 (08:54→12:02)
[2025-04-07] MEDS: LIPITOR 10 MG PO (08:54)
[2025-04-07] MEDS: LEXAPRO 10 MG PO (08:54)
[2025-04-07] MEDS: LASIX 20 MG PO (08:54)
--- NOTE | 2025-04-07 09:04 | W.PN.HOSP.TC ---
Today's Communication/Plan
-
dc
Assessment / Plan
Assessment / Plan
Physical exam:
General: Comfortable, coughing
HEENT: Anicteric and Moist mucous membranes
Respiratory: limited with rales at bases R>L
Cardiac: S1/S2
GI: Soft and Non Tender
Skin: vesicular rash on left breast
Musculoskeletal: no edema
Neuro: Awake, Alert
Psych: Calm
Acute hypoxic respiratory failure likely secondary to aspiration pneumonia
PATIENT CASE COORDINATOR 03/30 due to hypoxic respiratory failure, subsequently transferred to ICU
Sepsis likely secondary to above
Follow fever curve, monitor leukocytosis
Blood culture NGTD
Was initially placed on high flow, now down to 3 L nasal cannula. Wean oxygen as tolerated
Wean oxygen as tolerated
Continue with Unasyn; follow fever curve, change to oral Augmentin to finish 10 days course .
Repeat chest x ray showed right lower PNA
CT chest negative for PE however did show right lower lobe pneumonia
# Acute shingles
on left breast
Less discomfort/ burning, does not feel it is significant pain.
Isolation as standard precautions
Started Valacyclovir 1 gm TID for 5 days.
Coffee-ground emesis
Drake's esophagus
GI followed
Now NG tube removed, GI discussed with patient and family and they do not want any intervention. Plan now for regular diet
Continue PPI, changed to oral
Patient has previously denied EGD
Pelvic Fracture likely secondary to trauma and osteoporosis
Pelvic x-ray with mildly displaced left superior and inferior pubic rami fracture.
PT OT recommending SNF
Continue Tylenol
Avoid oversedation from pain meds
E Coli t urinary tract infection
Urine culture with E. coli
On ABx.
Essential Hypertension
-Continue amlodipine, losartan and metoprolol
Hypokalemia
Replete
Hypophosphatemia
Repleted
Hyperlipidemia
-Continue atorvastatin
Pre-Diabetes
-HgbA1c January 2025: 6.0
COPD, no acute exacerbation
-Continue Breo
Anxiety / Depression
-Continue Lexapro
Chronic Lower Extremity Edema
-Continue Lasix
ultrasound negative for DVT
Obstructive Sleep Apnea
-Daughter to bring patients CPAP
Incidental Thyroid Nodule
-Recommend thyroid ultrasound as outpatient
DVT proph: SCDs,Lovenox
Code Status: Full Code
Total discharge time spent to see the patient, examined the patient, review data and lab result, discuss discharge plan with patient, daughter, nursing staff around 67 minutes
Anticipated Discharge: Today
Subjective/Interval History
-
Date of Service: April 07, 2025
No complaints
Objective Data
-
Vital Signs:
Vital Signs
Temp Pulse Resp BP Pulse Ox
97.7 F 94 18 147/69 94
04/07/25 07:00 04/07/25 07:56 04/07/25 07:56 04/07/25 07:00 04/07/25 07:56
I&O
04/06/25 04/07/25 04/08/25
06:59 06:59 06:59
Intake Total 1440 / 1440 620 / 620
Balance 1440 / 1440 620 / 620
--- NOTE | 2025-04-07 10:45 | CM ---
Addendum entered by Jacqui Kim RN 04/07/25 11:24:
Covid negative. Monika aware.
Original Note:
MD indicated discharge today
Monika from [facility] confirms a bed ready .
[facility] auth [id number] [facility] call [phone]
Will need ambulance Medical nec form completed.
Requested Covid test as per Monika.
[facility]
report [phone]
fax [phone]
PLAN to [facility] after auth
[2025-04-07] MEDS: VENTOLIN NEBULES 2.5 MG INH (11:33)
--- NOTE | 2025-04-07 11:48 | PTCARENOTE ---
RN confirmed with Aaliyah Mohan, patient did not receive Flu vaccine this season and they have no record of PNA vaccine given. State register also confirmed, no record of administration.
[2025-04-07] MEDS: FLUZONE HIGH-DOSE 2025-26 0.5 ML IM (11:55)
[2025-04-07] MEDS: PREVNAR 20 0.5 ML IM (12:00)
[2025-04-07 12:15] VITALS: BP 145/66
--- NOTE | 2025-04-07 14:04 | W.DCSUMMARY ---
Discharge Summary
Discharge Data
Date of Admission: 03/30/25
Date of Discharge: 04/07/25
-
Pending Results: No
Hospital Course
89 years female presented to the ER after a fall. She has history of frequent falls. Imaging studies showed mildly displaced fractures of the left superior and inferior pubic rami. Scan of the head and neck did not show acute fracture but
incidental right thyroid nodule with recommendation for outpatient ultrasound evaluation. Shortly after admission to the hospital, patient was noted to become hypoxic after vomiting. She was diagnosed with aspiration pneumonia. Imaging studies of
the abdomen and pelvis showed no obstruction. GI doctor evaluated patient and felt that coffee-ground emesis in setting of nonsteroidal anti-inflammatory use in addition with history of hiatal hernia could lead to gastritis. She had nasogastric
tube and she was started on intravenous Protonix with bowel rest regimen. Patient subsequently improved with resuming of oral diet. She received antibiotic treatment for aspiration pneumonia. Her breathing status stabilized. Normalization of
white count. She did not have fevers. She was maintained on inhalation therapy. Patient was noted to have vesicular lesion on her left breast with diagnosis of acute shingles. She was started on valacyclovir treatment with good response.
Patient remained hemodynamically stable. She was discharged to custodial facility to finish course of oral antibiotic. Patient was maintained on low oxygen to avoid hypoxia although her requirements were ranging between 1 to 2 L to room air at
times. She used CPAP for nighttime. Patient was discharged in stable condition.
Discharge Plan
-
Patient Disposition: Long Term/SNF
Discharge Diagnosis/Procedures: - Acute hypoxic respiratory failure likely secondary to aspiration pneumonia: Finish course of antibiotic. Follow-up with pulmonary in the office.
-Acute shingles/ left breast, finishing course of Valtrex.
- Coffee-ground emesis/ Drake's esophagus, cpntinue with PPI.
-Pelvic Fracture likely secondary to trauma and osteoporosis, PRN Tylenol.
- E. Coli urinary tract infection, treated.
- Essential hypertension
-Hypokalemia/hypophosphatemia, treated.
-Hyperlipidemia
-COPD/obstructive sleep apnea. Hypoxia on 2 liters O2 for now, to wean off as OP. Uses own C -PAP
-Incidental thyroid nodule: Follow-up with the primary care doctor. 1.6 cm hypodense nodule within the right hemithyroid which met criteria for nonemergent thyroid ultrasound if not previously evaluated.
-Anxiety/depression
Diet: As tolerated
Referrals:
Satish Hernandez MD [Active, Pulmonary Medicine] - in three to four weeks
Jim Jones DO [Family Provider, [facility]]
Prescriptions:
New
ipratropium-albuterol 0.5 mg-3 mg(2.5 mg base)/3 mL Solution For Nebulization
3 ml inhalation R Q4HPRN PRN (Reason: SOB/cough) Qty: 90 0RF
amoxicillin-pot clavulanate 875-125 mg Tablet
1 tab PO Q12 Qty: 6 0RF
acetaminophen 325 mg Tablet
650 mg PO Q6HPRN PRN (Reason: mod to severe pain) Qty: 10 0RF
valacyclovir 500 mg Tablet
1,000 mg PO TID Qty: 8 0RF
Continued
atorvastatin 10 mg Tablet
10 mg PO DAILY
amlodipine 5 mg Tablet
5 mg PO HS
acetaminophen 500 mg Tablet
1,000 mg PO BID
ferrous sulfate [Iron (ferrous sulfate)] 325 mg (65 mg iron) Tablet
325 mg PO MOWEFR
furosemide [Lasix] 20 mg Tablet
20 mg PO DAILY
metoprolol succinate 25 mg Tablet Extended Release 24 Hr
25 mg PO DAILY
albuterol sulfate 90 mcg/actuation Hfa Aerosol Inhaler
2 puff INHALATION Q6H PRN (Reason: sob)
losartan 100 mg Tablet
100 mg PO DAILY
escitalopram oxalate [Lexapro] 10 mg Tablet
10 mg PO DAILY
cholecalciferol (vitamin D3) [Vitamin D3] 25 mcg (1,000 unit) Tablet
25 mcg PO DAILY
omeprazole 20 mg Tablet,Delayed Release (Dr/Ec)
20 mg PO DAILY
fluticasone furoate-vilanterol [Breo Ellipta] 100-25 mcg/dose Blister With Device
1 inh INHALATION DAILY
lactase [Dairy Relief] 3,000 unit tablet
3,000 unit PO AC
Discharge Orders:
Discharge Patient (As Directed); Ordered 04/07/25
Ordered By: Emmie Lang
Discharge Date and Time
Print Language: CROATIAN
--- NOTE | 2025-04-07 14:10 | CM ---
Covid negative. Monika aware.
MD indicated discharge today
Monika from [facility] confirms a bed ready .
Yared auth [id number] [facility] call [phone]
Will need ambulance Medical nec form completed.
Requested Covid test as per Monika.
[facility]
report [phone]
fax [phone]
PLAN to [facility] after auth
[2025-04-07 14:25] VITALS: BP 134/74
== END 2025-04-07 16:24 | DRG 871 ==
LOC: 3 WEST ACU 22:44
PROVIDERS: Internal Medicine; Nurse Practitioner Family; Registered Nurse; ADMITTING PHYSICIAN Hospitalist; ATTENDING PHYSICIAN Internal Medicine; CONSULT PHYSICIAN Internal Medicine Critical Care Medicine; EMERGENCY PHYSICIAN Emergency Medicine; FAMILY PHYSICIAN Student in an Organized Health Care Education/Training Program; OTHER PHYSICIAN Internal Medicine
PROC: 3E02340 Introduction of Influenza Vaccine into Muscle, Percutaneous Approach (ICD-10-PCS; 2025-04-07)
DX: A41.9 Sepsis, unspecified organism (principal); J69.0 Pneumonitis due to inhalation of food and vomit; J96.01 Acute respiratory failure with hypoxia; S32.512A Fracture of superior rim of left pubis, initial encounter for closed fracture; S32.592A Other specified fracture of left pubis, initial encounter for closed fracture; N39.0 Urinary tract infection, site not specified; F02.84 Dementia in other diseases classified elsewhere, unspecified severity, with anxiety; F02.83 Dementia in other diseases classified elsewhere, unspecified severity, with mood disturbance; K92.2 Gastrointestinal hemorrhage, unspecified; R29.6 Repeated falls; K22.70 Barrett's esophagus without dysplasia; I12.9 Hypertensive chronic kidney disease with stage 1 through stage 4 chronic kidney disease, or unspecified chronic kidney disease; N18.9 Chronic kidney disease, unspecified; J44.9 Chronic obstructive pulmonary disease, unspecified; F32.9 Major depressive disorder, single episode, unspecified; E87.6 Hypokalemia; E83.39 Other disorders of phosphorus metabolism; G47.33 Obstructive sleep apnea (adult) (pediatric); B02.9 Zoster without complications; W19.XXXA Unspecified fall, initial encounter; Z79.899 Other long term (current) drug therapy; Z91.81 History of falling; Z23 Encounter for immunization; Z11.52 Encounter for screening for COVID-19
CPT/HCPCS: 36600; 70450; 71045; 71275; 72125; 73502; 74018; 74176; 80048; 80053; 81003; 81015; 82805; 82962; 83605; 83735; 83880; 84100; 84484; 85025; 85027; 85379; 85610; 85730; 86850; 86900; 86901; 87040; 87086; 87088; 87186; 87502; 87811; 90662; 90677; 92610; 93005; 93306; 93970; 94640; 97163; 97167; 97530; 97535; G0008; G0009; Q9967

== ENCOUNTER 2025-04-28 02:52 | Observation (INO) | payer OTHER, SELFPAY ==
[2025-04-27 22:43] VITALS: BP 150/67
[2025-04-27 22:47] VITALS: BP 150/67
[2025-04-27 22:49] VITALS: BMI 24.7
[2025-04-27 23:06] LABS: Hematocrit 37.0 % (37.0-47.0); Hemoglobin 12.3 g/dL (12.0-16.0); Mean Corp Hgb Conc. 33.2 g/dL (33.0-37.0); Mean Corpuscular Volume 89.6 fL (81.0-99.0); Nucleated Red Blood Cells % 0 %; Platelet Count 246 10^3/uL (130-400); Red Cell Dist. Width 16.1 % (11.5-14.5)
[2025-04-27 23:25] LABS: ALT (SGPT) 16 U/L (0-35); AST (SGOT) 22 U/L (14-36); Albumin 4.3 g/dl (3.5-5.0); Alkaline Phosphatase 134 U/L (38-126); Blood Urea Nitrogen 22 mg/dl (7-17); Calcium 9.9 mg/dl (8.4-10.2); Carbon Dioxide 27 mmol/L (22-30); Chloride 102 mmol/L (98-107); Estimated Creatinine Clearance 37 ml/min; Glucose 121 mg/dl (70-99); Potassium 4.2 mmol/L (3.5-5.1); Sodium 134 mmol/L (135-145); Total Protein 7.9 g/dl (6.3-8.2); eGFR > 60.00
[2025-04-28] VITALS (9 sets, daily range): BP systolic 111–156; BP diastolic 59–79; PULSE 75–76; O2SAT 93; BMI 24.3
--- NOTE | 2025-04-28 00:24 | ED.GENMED ---
History of Present Illness
<Jose Cintron Jr., PA-C - Last Filed: 04/28/25 03:04>
General
Chief Complaint: Fall
Source: patient
Exam Limitations: none
Time Seen by Provider: 04/27/25 23:06
Nursing documentation reviewed up to this point in time: agreed with
History of Present Illness
History of Present Illness:
89-year-old female past with history of Alzheimer's dementia, COPD, CAD hypertension hyperlipidemia presenting from [facility] assisted living after mechanical fall in the bathroom witnessed by staff eyebrow. Manically of right sided elbow pain
as well as small cut to the right wrist and abrasion to the right forehead. Patient denies any head or neck pain no chest pain shortness of breath only complaining of elbow pain at this point denies additional concerns unable to give specific
history of the fall though.
Past History
<Jose Cintron Jr., PA-C - Last Filed: 04/28/25 03:04>
Past History
ED Past Medical History: COPD, HTN, Hypercholesterolemia, Psychiatric (Alzheimer's dementia, MDD, Anxiety/depression), Other (CKD, Drake's esophagus, osteoporosis) and Other (Gait instability, pulmonary hypertension)
ED Past Surgical History: Orthopedic
Social History
Tobacco: Non-smoker
Alcohol: None
Living: alone (Independent care at [facility])
Review of Systems
<Jose Cintron Jr., PA-C - Last Filed: 04/28/25 03:04>
Review of Systems
Allergies reviewed?: Yes
All Other Systems: ROS reviewed and negative except as documented in HPI and ROS
Phy Exam
<Jose Cintron Jr., PA-C - Last Filed: 04/28/25 03:04>
Physical Exam
Physical Exam:
GENERAL: Alert , in no apparent distress
EYE: pupils equal and reactive
NECK: No neck pain to palpation supple, no significant adenopathy.
ENT: o/p clr, mmm.
CARDIAC: Regular rate and rhythm .
LUNGS: Clear breath sounds bilaterally, no acute respiratory distress, no wheezes/rales/rhonchi
ABDOMEN: Soft, without focal tenderness, no r/g, no cvat
NEUROLOGICAL: Alert no focal neuro deficits 5 out of 5 upper and lower extremity strength normal sensation with palpating bilaterally.
SKIN: Warm and dry, skin intact.
MUSCULOSKELETAL: Swelling discomfort to palpation to the right elbow mainly overlying the olecranon with bruising and swelling. No edema, well perfused.
PSYCH: Normal and appropriate interaction.
Course
<Jose Cintron Jr., JITENDRA - Last Filed: 04/28/25 03:04>
Orders/Labs/Results
Orders:
Orders
04/27/25 22:52
CT Head W/o Iv Contrast Urgent
Comment:
Reason For Exam: fall
Cervical Spine wo Contrast CT [CT Cervical Spine W/o Iv Contr] Urgent
Comment:
Reason For Exam: fall
04/27/25 22:55
Elbow, 3 View, Right [CR Elbow - Right Min 3 Views] Urgent
Comment:
Reason For Exam: fall with hematoma
04/27/25 22:56
Complete Blood Count/With Diff Urgent
Comprehensive Metabolic Panel Urgent
04/28/25 00:01
Chest [CR Chest - 2 Views ] Urgent
Comment:
Reason For Exam: fall
04/28/25 02:38
Admit/Transfer Patient As Directed
Co-Sign Provider:
Level of Care: Observation services
Assign to:: Telemetry
Physician / Group: Jeremias
Diagnosis: Fall, R Elbow Fracture
Reason for Telemetry: Syncope
Date to Stop Telemetry: 04/30/25
Time to Stop Telemetry: 11:00
PRN Pain Medication Management As Directed
May give lesser potent ordered pain med per pt: Yes
preference::
Protocol:: Medication orders for pain may be administered in a
manner that supports deferring to patient preference
when the pt is:
- Requesting an ordered lesser potent pain medication.
Least to most potent pain medications are defined
as: acetaminophen < NSAID < tramadol < opioids
(morphine, oxycodone, hydromorphone).
- Requesting a lesser dose of the same medication IF
ORDERED.
- Requesting a less intrusive route of administration
if both routes are prescribed by the provider (PO <
IV).
04/28/25 02:41
Code Status As Directed
Resuscitation Status: Full Code
04/30/25 11:00
DC Protocol for Telemetry ONCE
Abnormal Lab Results
04/27/25
22:56
WBC 12.4 H 10^3/uL
(4.8-10.8)
RBC 4.13 L 10^6/uL
(4.20-5.40)
RDW 16.1 H %
(11.5-14.5)
Abs Immat Gran (auto) 0.1 H 10^3/uL
(0-0.05)
Absolute Neuts (auto) 9.0 H 10^3/uL
(1.4-6.5)
Absolute Monos (auto) 1.2 H 10^3/uL
(0.1-0.6)
Lymphocytes % 14.4 L %
(20.5-51.1)
Monocytes % 9.9 H %
(1.7-9.3)
Sodium 134 L mmol/L
(135-145)
BUN 22 H mg/dl
(7-17)
Glucose 121 H mg/dl
(70-99)
Alkaline Phosphatase 134 H U/L
(38-126)
04/27/25 22:56
04/27/25 22:56
Vital Signs
Initial and Last Documented VS:
Initial Vital Signs
Pulse Resp BP
70 21 150/67
04/27/25 22:43 04/27/25 22:43 04/27/25 22:43
Last Documented Vital Signs
Temp Pulse Resp BP Pulse Ox
97.7 F 72 18 150/67 94
04/27/25 22:47 04/27/25 22:47 04/27/25 22:47 04/27/25 22:47 04/28/25 00:27
<Mita Moreira, DO - Last Filed: 04/28/25 01:22>
Orders/Labs/Results
Orders:
Orders
04/27/25 22:52
CT Head W/o Iv Contrast Urgent
Comment:
Reason For Exam: fall
Cervical Spine wo Contrast CT [CT Cervical Spine W/o Iv Contr] Urgent
Comment:
Reason For Exam: fall
04/27/25 22:55
Elbow, 3 View, Right [CR Elbow - Right Min 3 Views] Urgent
Comment:
Reason For Exam: fall with hematoma
04/27/25 22:56
Complete Blood Count/With Diff Urgent
Comprehensive Metabolic Panel Urgent
04/28/25 00:01
Chest [CR Chest - 2 Views ] Urgent
Comment:
Reason For Exam: fall
04/28/25 02:38
Admit/Transfer Patient As Directed
Co-Sign Provider:
Level of Care: Observation services
Assign to:: Telemetry
Physician / Group: Jeremias
Diagnosis: Fall, R Elbow Fracture
Reason for Telemetry: Syncope
Date to Stop Telemetry: 04/30/25
Time to Stop Telemetry: 11:00
PRN Pain Medication Management As Directed
May give lesser potent ordered pain med per pt: Yes
preference::
Protocol:: Medication orders for pain may be administered in a
manner that supports deferring to patient preference
when the pt is:
- Requesting an ordered lesser potent pain medication.
Least to most potent pain medications are defined
as: acetaminophen < NSAID < tramadol < opioids
(morphine, oxycodone, hydromorphone).
- Requesting a lesser dose of the same medication IF
ORDERED.
- Requesting a less intrusive route of administration
if both routes are prescribed by the provider (PO <
IV).
04/28/25 02:41
Code Status As Directed
Resuscitation Status: Full Code
04/30/25 11:00
DC Protocol for Telemetry ONCE
Abnormal Lab Results
04/27/25
22:56
WBC 12.4 H 10^3/uL
(4.8-10.8)
RBC 4.13 L 10^6/uL
(4.20-5.40)
RDW 16.1 H %
(11.5-14.5)
Abs Immat Gran (auto) 0.1 H 10^3/uL
(0-0.05)
Absolute Neuts (auto) 9.0 H 10^3/uL
(1.4-6.5)
Absolute Monos (auto) 1.2 H 10^3/uL
(0.1-0.6)
Lymphocytes % 14.4 L %
(20.5-51.1)
Monocytes % 9.9 H %
(1.7-9.3)
Sodium 134 L mmol/L
(135-145)
BUN 22 H mg/dl
(7-17)
Glucose 121 H mg/dl
(70-99)
Alkaline Phosphatase 134 H U/L
(38-126)
04/27/25 22:56
04/27/25 22:56
Vital Signs
Initial and Last Documented VS:
Initial Vital Signs
Pulse Resp BP
70 21 150/67
04/27/25 22:43 04/27/25 22:43 04/27/25 22:43
Last Documented Vital Signs
Temp Pulse Resp BP Pulse Ox
97.7 F 72 18 150/67 94
04/27/25 22:47 04/27/25 22:47 04/27/25 22:47 04/27/25 22:47 04/28/25 00:27
Procedures
<Jose Cintron Jr., PA-C - Last Filed: 04/28/25 03:04>
Splinting/Sling Placement
Right Elbow:
Procedure completed by: myself
Pre-splint extermity exam: neurovascular intact
Type of splint: posterior long arm
Splint material: fiberglass
Splint checked by provider?: Yes
Type of sling: sling fitted
Normal distal neurovascular exam?: Yes
<Jose Cintron Jr., PA-C - Last Filed: 04/28/25 03:04>
MDM/Problems Addressed
MDM/Problems Addressed:
89-year-old female presenting to the emergency department today after mechanical fall. Patient found have right-sided elbow fracture. According to daughter she uses a walker to ambulate and would not be able to be sent back to her nursing facility
at this point with an elbow fracture. No evidence of head bleed or emergent pathology on head or neck CT there was an acute right posterior first rib fracture but patient has no overlying discomfort to the area unlikely be acute from recent event.
Stable throughout ER stay.
<Jose Cintron Jr., PA-C - Last Filed: 04/28/25 03:04>
*Pulse Oximetry
SaO2: 94
Oxygen Mode of Delivery: Room air
Patient hypoxic: no (94)
*Critical Care Note
Total Time (30-74mins, 75-104mins- exclusive of procedures): Not Applicable
ED Attending Note
<Jose Cintron Jr., PA-C - Last Filed: 04/28/25 03:04>
-
Portions of this chart may have been created with voice recognition software.� Occasional wrong word or��sound alike� substitutions may have occurred due to the inherent limitations of voice recognition software.
<Mita Moreira DO - Last Filed: 04/28/25 01:22>
ED Attending Note
Patient seen and examined by attending physician: Yes
I performed a history and physical exam of patient and discussed management with resident, I reviewed resident's note and agree with documented findings and plan of care.: Yes
ED Attending Note:
89-year-old woman with history of dementia, resides at [facility] recently transferred from independent living to assisted living earlier today. Ambulatory dysfunction, uses a walker to ambulate. Suffered a mechanical fall in the bathroom.
Complains of right forearm/elbow pain.
Takes no anticoagulants.
89-year-old woman appears her stated age. Bright and alert, mildly confused but pleasant and in no acute distress.
HEENT: The head is normocephalic, atraumatic.
Right upper extremity. Long-arm posterior splint in place. Distal sensation, strength intact. Rapid capillary refill.
Imaging remarkable for comminuted olecranon fracture. Head CT, cervical spine CT are unremarkable. No evidence of acute traumatic findings.
She has been placed in a long-arm posterior splint.
Due to dementia, ambulatory dysfunction requiring walker to ambulate, patient is at significant risk for recurrent falls and will require higher level of nursing care/nursing intervention.
Will admit to hospitalist service and plan for case management consult. Orthopedic consult.
Thus far has not required pain medication.
Due to advanced age, dementia would avoid opioid medications.
Discharge Plan
Departure
Patient Disposition: Admit
Date of Disposition: 04/28/25
Time of Disposition: 01:43
Admit to: Med/Surg
Admit to doctor: Jeremias
Presentation/result/management discussed w/ accepting MD/DO: Hospitalist
Patient with high blood pressure during this ER visit?: No
Condition: Good
Covid-19: Not Applicable
Discharge Problem:
Fall, Olecranon fracture
Interventions
Interventions:
*Risk Screen - Suicide Last Done: 04/27/25 22:50
*General Assessment Last Done: 04/27/25 22:50
*Neglect/Abuse Screening Last Done: 04/27/25 22:50
*ED- Fall Risk Assessment Last Done: 04/27/25 22:45
*ED COVID-19 Vaccine History Last Done: 04/27/25 22:45
*ED Influenza Vaccine History Last Done: 04/27/25 22:45
ED-Musculoskeletal Assessment Last Done: 04/27/25 23:17
ED- Neurological Assessment Last Done: 04/27/25 23:17
ED-Skin Assessment Last Done: 04/27/25 23:17
--- NOTE | 2025-04-28 02:44 | HPS.HSE ---
Family Physician
-
Family Physician: Jim Jones, DO
Chief Complaint
-
Fall, R Elbow Pain
History of Present Illness
Patient is an 89y F with PMH significant for ASCVD, hypertension and COPD who presents to ED complaining of fall at home with R elbow pain. Patient states that she fell at home this evening. She cannot recall the details of the fall. She
denies feeling lightheaded or dizzy or having any other prodrome. She states that she 'isn't sure what happened'. She denies had injury or LOC - though she clearly has a contusion to the R brow area. Patient noted pain in the R elbow after the
fall.
In the ED she is resting comfortably.
Patient has had multiple falls over the past year with prior fracture of the humerus, clavicle and pelvis.
She states that she 'always falls backwards'.
She walks with a walker at baseline.
Medical History
Past Medical History
Past Medical History: Reports Other
Additional Past Medical History:
Coronary Atherosclerosis
Essential Hypertension
Hyperlipidemia
Pre-Diabetes
COPD
Mild Cognitive Impairment
Anxiety / Depression
GERD
Osteoarthritis
Chronic Lower Extremity Edema
Obstructive Sleep Apnea
Past Surgical History: Reports Other
Additional Past Surgical History:
Left Radius/Ulna ORIF
Social History
Tobacco: Non-smoker
Living: Other (Independent apartment at [facility] with care givers ~12 hours per day)
Family History
Family History: Not pertinent
Allergies / Home Medications
Allergies reflects when Allergies were last updated in [employer].
Home Medications with original date entered in [employer]
Allergy/Medication List:
Allergies
Allergy/AdvReac Type Severity Reaction Status Date / Time
No Known Allergies Allergy Verified 04/27/25 22:44
Home Medications
acetaminophen 500 mg tablet 1,000 mg PO BID Pain 01/18/25
albuterol sulfate 90 mcg/actuation aerosol inhaler 2 puff inhalation Q6H PRN sob 01/18/25
amlodipine 5 mg tablet 5 mg PO HS Blood Pressure 01/18/25
atorvastatin 10 mg tablet 10 mg PO DAILY High Cholesterol 01/18/25
cholecalciferol (vitamin D3) 25 mcg (1,000 unit) tablet (Vitamin D3) 25 mcg PO DAILY Supplement 01/18/25
escitalopram oxalate 10 mg tablet (Lexapro) 10 mg PO DAILY depression/anxiety 01/18/25
ferrous sulfate 325 mg (65 mg iron) tablet (Iron (ferrous sulfate)) 325 mg PO MOWEFR Supplement 01/18/25
fluticasone furoate 100 mcg-vilanterol 25 mcg/dose inhalation powder (Breo Ellipta) 1 inh inhalation DAILY Lung/Breathing Issues 01/18/25
furosemide 20 mg tablet (Lasix) 20 mg PO DAILY Fluid Retention/Swelling 01/18/25
losartan 100 mg tablet 100 mg PO DAILY Blood Pressure 01/18/25
metoprolol succinate 25 mg tablet,extended release 24 hr 25 mg PO DAILY Heart Disease/BP 01/18/25
omeprazole 20 mg tablet,delayed release 20 mg PO DAILY Gastrointestinal Issue 01/18/25
lactase 3,000 unit tablet (Dairy Relief) 3,000 unit PO AC Gastrointestinal Issue 03/30/25
acetaminophen 325 mg tablet 650 mg (2 x 325 mg) PO Q6HPRN PRN mod to severe pain #10 tabs 04/06/25
melatonin 5 mg tablet 5 mg PO HS PRN insomnia 04/28/25
Review of Systems
-
Unable to obtain full review of systems at this time due to: Dementia
History Source: Patient
A 12 point ROS was completed and negative except as noted: Yes
Constitutional: Denies Fever or Chills
Respiratory: Denies Cough or Trouble Breathing
Cardiac: Denies Chest Pain, Palpitations or Syncope
Abdomen/GI: Denies Abdominal Pain, Nausea, Vomiting or Diarrhea
: Denies Dysuria or Frequency
Musculoskeletal: Reports Joint Pain; Denies Edema
Neurological: Denies Dizzy, Headache, Weakness or Numbness
Physical Exam
Vital Signs
Vital Signs
Temp Pulse Resp BP Pulse Ox
97.7 F 72 18 150/67 94
04/27/25 22:47 04/27/25 22:47 04/27/25 22:47 04/27/25 22:47 04/28/25 00:27
Physical Exam
General: Other (Pleasant 89y F in no acute distress.)
HEENT: Moist mucous membranes and PERRLA
Respiratory: Clear; No Wheezes, Rales or Rhonchi
Cardiac: S1/S2 and Regular Rhythm; No Murmur
GI: Soft, Non Tender, Non Distended and Normal Bowel Sounds
Musculoskeletal: No Clubbing, No Cyanosis, No Edema and Other (RUE in sling with LISANDRA wrap from wrist to mid-humerus.)
Neuro: Awake, Alert and Nonfocal/grossly intact
Laboratory Results
-
04/27/25 22:56
04/27/25 22:56
Laboratory Results
Total Bilirubin 0.5 mg/dl (0.2-1.3) 04/27/25 22:56
AST 22 U/L (14-36) 04/27/25 22:56
ALT 16 U/L (0-35) 04/27/25 22:56
Alkaline Phosphatase 134 U/L (38-126) H 04/27/25 22:56
Impression/Plan
-
A/P: Patient is an 89y F with PMH significant for ASCVD, hypertension and frequent falls who presents to ED complaining of R elbow pain s/p fall today.
Right Olecranon Fracture
Fall at Home
- Observe overnight for further evaluation and treatment.
- Patient unable to ambulate as she uses a walker at baseline.
- Pain control, maintain sling / LISANDRA wrap, NWB to RUE for now.
- PT / OT evaluations.
- Ortho evaluation for further recommendations / outpatient follow-up.
Frequent Falls
- Patient describes retropulsion and has had many falls in the past year with multiple injuries / fractures as a result.
- Concerning for Parkinsonism and should have formal Neurologic evaluation for such - probably as an outpatient.
- PT / OT as noted above.
Essential Hypertension
LE Edema
- Hold amlodipine given chronic edema. Then hold Lasix.
- Continue losartan and metoprolol with holding parameters.
- TEDs stockings for edema.
- Echo done last admission was unremarkable.
Hyperlipidemia
- Continue atorvastatin
Diet-Controlled DM-II
- Follow glucose and cover with SSI if needed.
- Update A1C.
COPD, no acute exacerbation
- Continue Breo. Albuterol PRN.
Anxiety / Depression
- Continue Lexapro
DVT prophylaxis: SCDs
Code Status: Full Code
[2025-04-28] MEDS: ULTRAM 25 MG PO ×2 (04:17→12:14)
[2025-04-28 05:46] LABS: Hematocrit 31.7 % (37.0-47.0); Hemoglobin 10.7 g/dL (12.0-16.0); Mean Corp Hgb Conc. 33.8 g/dL (33.0-37.0); Mean Corpuscular Volume 90.1 fL (81.0-99.0); Platelet Count 209 10^3/uL (130-400); Red Cell Dist. Width 15.7 % (11.5-14.5)
[2025-04-28 06:46] LABS: Blood Urea Nitrogen 21 mg/dl (7-17); Calcium 9.3 mg/dl (8.4-10.2); Carbon Dioxide 26 mmol/L (22-30); Chloride 105 mmol/L (98-107); Estimated Creatinine Clearance 55 ml/min; Glucose 110 mg/dl (70-99); Potassium 4.0 mmol/L (3.5-5.1); Sodium 138 mmol/L (135-145); eGFR > 60.00
[2025-04-28] MEDS: SYMBICORT 160/4.5 MCG INHALER 2 PUFF INH ×2 (07:09→19:44)
[2025-04-28 08:10] LABS: Glucose - Point of Care 120 mg/dl (70-99)
[2025-04-28] MEDS: TYLENOL 1000 MG PO ×3 (08:33→22:15)
[2025-04-28] MEDS: PROTONIX 40 MG PO (08:33)
[2025-04-28] MEDS: COZAAR 100 MG PO (08:33)
[2025-04-28] MEDS: LIPITOR 10 MG PO (08:33)
[2025-04-28] MEDS: LEXAPRO 10 MG PO (08:33)
[2025-04-28] MEDS: TOPROL XL 25 MG PO (08:33)
[2025-04-28] MEDS: LACTAID 1 CAPSULE PO ×3 (08:35→15:40)
[2025-04-28 09:32] LABS: Glycohemoglobin (HgbA1c) 5.6 % (4.0-5.9)
--- NOTE | 2025-04-28 11:07 | CON.ORTHO ---
Consultation
-
Date/Time Consultation Requested: 04/28/2025
Date/Time Consultation Performed: 04/28/2025
Requesting Provider: Dr. So
Performing Provider: Kerry Pittman PA-C, for Dr. Satish Daley
Reason for Consultation: Right olecranon fracture
Consultation - Orthopedics
History
HPI: This is a pleasant 89-year-old female who presented to [facility] after sustaining unwitnessed fall at her assisted living last evening. In questioning the patient, what exactly happened, but is complaining of right elbow pain.
X-rays taken Emergency Department did demonstrate a displaced fracture of her right olecranon. She was placed in a posterior long-arm splint. She states that with the immobilization and pain medication, her symptoms are well-controlled. We were
consulted in to discuss definitive manage treatment for right olecranon fracture.
Past medical history: Significant for coronary artery disease, essential hypertension, hyperlipidemia, prediabetes, COPD versus asthma, vascular dementia, anxiety/depression, GERD, osteoarthritis, sleep apnea, osteoporosis.
Past surgical history: Left distal radius/ulna ORIF.
Social history: Denies tobacco use. Just transition to assisted living at [facility].
Family history: Noncontributory.
Review of systems: Unable to obtain due to dementia.
Allergies / Home Medications
Allergy/AdvReac Type Severity Reaction Status Date / Time
No Known Allergies Allergy Verified 04/27/25 22:44
�Medication �Instructions �Recorded
acetaminophen 500 mg tablet 1,000 mg PO BID Pain 01/18/25
albuterol sulfate 90 mcg/actuation 2 puff inhalation Q6H PRN sob 01/18/25
aerosol inhaler
amlodipine 5 mg tablet 5 mg PO HS Blood Pressure 01/18/25
atorvastatin 10 mg tablet 10 mg PO DAILY High Cholesterol 01/18/25
cholecalciferol (vitamin D3) 25 25 mcg PO DAILY Supplement 01/18/25
mcg (1,000 unit) tablet (Vitamin
D3)
escitalopram oxalate 10 mg tablet 10 mg PO DAILY depression/anxiety 01/18/25
(Lexapro)
ferrous sulfate 325 mg (65 mg 325 mg PO MOWEFR Supplement 01/18/25
iron) tablet (Iron (ferrous
sulfate))
fluticasone furoate 100 1 inh inhalation DAILY 01/18/25
mcg-vilanterol 25 mcg/dose Lung/Breathing Issues
inhalation powder (Breo Ellipta)
furosemide 20 mg tablet (Lasix) 20 mg PO DAILY Fluid 01/18/25
Retention/Swelling
losartan 100 mg tablet 100 mg PO DAILY Blood Pressure 01/18/25
metoprolol succinate 25 mg 25 mg PO DAILY Heart Disease/BP 01/18/25
tablet,extended release 24 hr
omeprazole 20 mg tablet,delayed 20 mg PO DAILY Gastrointestinal 01/18/25
release Issue
lactase 3,000 unit tablet (Dairy 3,000 unit PO AC Gastrointestinal 03/30/25
Relief) Issue
acetaminophen 325 mg tablet 650 mg (2 x 325 mg) PO Q6HPRN PRN 04/06/25
mod to severe pain #10 tabs
melatonin 5 mg tablet 5 mg PO HS PRN insomnia 04/28/25
Vital Signs / Lab Results
Temp Pulse Resp BP Pulse Ox
97.8 F 77 16 131/70 92
04/28/25 07:00 04/28/25 08:33 04/28/25 07:10 04/28/25 08:33 04/28/25 07:10
04/28/25 05:37
04/28/25 05:37
Physical Examination:
General: WD/WN. Oriented to self. No acute distress at rest.
HEENT: ecchymosis above right eye. Neck supple.
Heart: RRR.
Lungs: Non labored breathing on room, no audible wheezing.
Right elbow: Posterior long arm splint in place. No surrounding skin breakdown. Able to make complete fist without pain. N/v intact distally.
Radiographic interpretation:
X-rays of the right elbow from 04/27/25 shows evidence of a displaced, angulated proximal ulna fracture.
Assessment / Plan
Assessment: Right displaced olecranon fracture.
Plan: Leny is an 89-year-old female who sustained a displaced right proximal ulna fracture during her recent fall. Her medical POA, her daughter, Malcolm, was on the phone when discussing treatment recommendations going forward. We discussed
both operative and nonoperative interventions going forward. Leny has sustained multiple falls and fractures over the past several months, but was able to heal these nonoperatively. We did discuss that nonoperative treatment of this current
fracture may lead to limited range of motion and strength deficits, but once healed, will leave her pain-free and able to function per her baseline status. For now, they have opted to proceed with nonoperative intervention with full-time
immobilization in a posterior long-arm splint. She will use a sling for comfort. She should remain nonweightbearing on her right upper extremity until further notice and with nothing heavier than a coffee cup in her right hand. Discussed case
with hospitalist, Dr. So. We will plan to see her in 2 weeks in our outpatient office for repeat x-rays and discussion of progression of activities at that time. We will sign off from an orthopedic standpoint for now.
Leny is also 3-4 weeks out from a pelvic fracture and was supposed to have repeat x-rays completed outpatient. That follow up has not yet been arranged. Will order new pelvis x-ray to evaluate level of healing present, but overall patient
reports improvement in symptoms.
--- NOTE | 2025-04-28 11:59 | W.PN.UPDATE ---
Update Note
Progress Note Update
Admitted earlier this morning with fall and R olecranon elbow fracture
Orthopedics has evaluated, RUE/elbow in sling. Tylenol effective for pain control per patient. Family at bedside.
Recently admitted for PNA and Shingles; reports recovering well from both issues and Zoster rash resolved
Recently dc'd from SNF To A/L - All at [facility]
Assessment:
Right Olecranon Fracture
Fall at Home
- Patient unable to ambulate as she uses a walker at baseline.
- Pain control, maintain sling/LISANDRA wrap, NWB to RUE for now.
- Ortho following
- plan is to continue splint/sling and NWB RUE for 2 weeks until see in office follow up.
- PT/OT evaluations - SNF recommended
Frequent Falls
- Patient describes retropulsion and has had many falls in the past year with multiple injuries/fractures as a result.
- per family - was previously evaluated by Neurology and felt falls related to age/dementia state rather than new diagnosis such as Parkinsons vs other
- PT/OT evaluations - SNF recommended
Essential Hypertension
chronic LE Edema
- Hold amlodipine given chronic edema. Then hold Lasix.
- Continue losartan and metoprolol with holding parameters.
- TEDs stockings for edema.
- Echo done last admission was unremarkable.
Hyperlipidemia
- atorvastatin
Diet-Controlled DM-II
- Follow glucose and cover with SSI if needed.
- A1c 5.6%
COPD, no acute exacerbation
- Continue Breo. Albuterol PRN.
Anxiety/Depression
- Continue Lexapro
Recent aspiration pneumonia
- no pulmonary complaints, did complete antibiotics
hx of L breast shingles - completed Valacyclovir. Rash resolved.
Drake esophagus - continue PPI
Recent Pelvic Fracture likely secondary to trauma and osteoporosis
- repeat Xray pending
Obstructive Sleep Apnea - on CPAP
Incidental Thyroid Nodule
- OP Thyroid US
DVT prophylaxis: SCDs
Code: Full
[2025-04-28 12:01] LABS: Glucose - Point of Care 148 mg/dl (70-99)
--- NOTE | 2025-04-28 14:24 | CM ---
Addendum entered by Jacqui Kim RN 04/28/25 14:55:
[facility]
report [phone]
fax [phone]
Original Note:
Spoke with rolando Fowler because pt was sleeping.Pt lives at [facility] in assisted living and was a [employer] recently. Dgt said she is sometime confused.She has vascular dementia. She uses a walker and rollator.She with Monika at [facility] there
is a bed ready for tomorrow.Covid test needs to be done prior to dc.Dgt agreed that ambulance will be needed. SANTIAGO letter explained all questions answered.
HX [facility]
Pharmacy [facility] and [facility]
PCP Dr Jones
PLAN To [facility] .
[2025-04-29 03:00] VITALS: BP 137/75
[2025-04-29 06:00] VITALS: BMI 23.9
[2025-04-29 06:00] LABS: Hematocrit 33.5 % (37.0-47.0); Hemoglobin 11.1 g/dL (12.0-16.0); Mean Corp Hgb Conc. 33.1 g/dL (33.0-37.0); Mean Corpuscular Volume 89.8 fL (81.0-99.0); Platelet Count 207 10^3/uL (130-400); Red Cell Dist. Width 15.9 % (11.5-14.5)
[2025-04-29 06:50] LABS: Blood Urea Nitrogen 17 mg/dl (7-17); Calcium 8.9 mg/dl (8.4-10.2); Carbon Dioxide 28 mmol/L (22-30); Chloride 104 mmol/L (98-107); Estimated Creatinine Clearance 55 ml/min; Glucose 92 mg/dl (70-99); Potassium 4.1 mmol/L (3.5-5.1); Sodium 134 mmol/L (135-145); eGFR > 60.00
[2025-04-29 07:00] VITALS: BP 157/84
[2025-04-29] MEDS: SYMBICORT 160/4.5 MCG INHALER INH (08:38)
[2025-04-29 09:48] LABS: COVID-19 Antigen Negative (Negative)
[2025-04-29] MEDS: COZAAR 100 MG PO (10:12)
[2025-04-29] MEDS: LIPITOR 10 MG PO (10:12)
[2025-04-29] MEDS: PROTONIX 40 MG PO (10:12)
[2025-04-29] MEDS: TOPROL XL 25 MG PO (10:12)
[2025-04-29] MEDS: LEXAPRO 10 MG PO (10:13)
[2025-04-29] MEDS: LACTAID 1 CAPSULE PO (10:13)
[2025-04-29] MEDS: TYLENOL 1000 MG PO (10:13)
--- NOTE | 2025-04-29 10:15 | CM ---
Addendum entered by Jacqui Kim RN 04/29/25 11:14:
[facility] Auth # [id number].
Original Note:
MD indicated pt ready for dc
Spoke with dgt Malcolm she is aware and agrees with dc to [facility] via ambulance Medical noec forms completed.PT confused.She has vascular dementia.
Monika Mohan said auth is being taken care of by Heather at [facility].
Covid neg Monika aware.
Maintained under observation.
Aaliyah Mohan
report [phone]
fax [phone]
PLAN To [facility]
[2025-04-29 11:00] VITALS: BP 138/80
--- NOTE | 2025-04-29 11:58 | W.PN.HOSP.TC ---
Today's Communication/Plan
-
dc SNF
Assessment / Plan
Assessment / Plan
Assessment:
Right Olecranon Fracture
Fall at Home
- Patient unable to ambulate as she uses a walker at baseline.
- Pain control, maintain sling/LISANDRA wrap, NWB to RUE for now.
- Ortho following
- plan is to continue splint/sling and NWB RUE for 2 weeks until see in office follow up.
- PT/OT evaluations - SNF recommended
Frequent Falls
- Patient describes retropulsion and has had many falls in the past year with multiple injuries/fractures as a result.
- per family - was previously evaluated by Neurology and felt falls related to age/dementia state rather than new diagnosis such as Parkinsons vs other
- PT/OT evaluations - SNF recommended
Essential Hypertension
chronic LE Edema
- Hold amlodipine given chronic edema. Then hold Lasix.
- Continue losartan and metoprolol with holding parameters.
- TEDs stockings for edema.
- Echo done last admission was unremarkable.
Hyperlipidemia
- atorvastatin
Diet-Controlled DM-II
- Follow glucose and cover with SSI if needed.
- A1c 5.6%
COPD, no acute exacerbation
- Continue Breo. Albuterol PRN.
Anxiety/Depression
- Continue Lexapro
Recent aspiration pneumonia
- no pulmonary complaints, did complete antibiotics
hx of L breast shingles - completed Valacyclovir. Rash resolved.
Drake esophagus - continue PPI
Recent Pelvic Fracture likely secondary to trauma and osteoporosis
- repeat Xray pending
Obstructive Sleep Apnea - on CPAP
Incidental Thyroid Nodule
- OP Thyroid US
DVT prophylaxis: SCDs
Code: Full
More than 30 minutes spent in discharge including
Final examination of the patient
Summarizing hospital stay
Instructions for continuing care to all relevant caregivers
Preparation of discharge records, prescriptions, and referral forms
Total time spent (in minutes): 41
Anticipated Discharge: Today
Subjective/Interval History
-
Date of Service: April 29, 2025
resting comfortably, pain controlled
Objective Data
-
Labs:
Laboratory Results
04/29/25
05:45
WBC 10.2
Hgb 11.1 L
Hct 33.5 L
Plt Count 207
Sodium 134 L
Potassium 4.1
Chloride 104
Carbon Dioxide 28
BUN 17
Creatinine 0.6
Glucose 92
Calcium 8.9
Vital Signs:
Vital Signs
Temp Pulse Resp BP Pulse Ox
98.8 F 84 17 138/80 93
04/29/25 11:00 04/29/25 11:00 04/29/25 11:00 04/29/25 11:00 04/29/25 11:00
I&O
04/28/25 04/29/25 04/30/25
06:59 06:59 06:59
Intake Total 480 / 480
Balance 480 / 480
Physical Exam
-
General: No Apparent Distress
HEENT: Normocephalic and Atraumatic
Respiratory: Negative Wheezes
Cardiac: Regular Rhythm and S1/S2
GI: Soft and Nontender
Musculoskeletal: Other (RUE in sling/cast)
Neuro: AO x 3
Hematologic / Lymphatic: No Lymphadenopathy
Psych: Calm
Data Reviewed
-
Total Time Spent with Patient (in minutes): 41
Labs: Labs Reviewed by me
--- NOTE | 2025-04-29 12:05 | W.DCSUMMARY ---
Discharge Summary
Discharge Data
Date of Admission: 04/28/25
Date of Discharge: 04/29/25
-
Pending Results: No
Hospital Course
89 y/o F hx of CAD, HTN, HLD, COPD, Anxiety/Depression/GERD, LE edema, KALI presented to ER on 04/28 with mechanical fall and R elbow pain. Xray imaging showed Right Olecranon Fracture. Orthopedics consulted recommended nonoperative management with
NWB status and sling placement. Orthopedics will follow up with patient in 2 weeks for repeat imaging. Patients pain was well controlled with Tylenol. She was evaluated by PT/OT and recommended for SNF. She was discharged to SNF on 04/29/25.
Discharge Plan
-
Patient Disposition: Skilled Nursing/SNF
Discharge Diagnosis/Procedures: Right Olecranon Fracture; conservatively managed
Condition: Fair
Diet: Regular
Activity: As tolerated
Additional Activity: NWB RUE
Bathing Restrictions: None
Other Services: PT and OT
Referrals:
Jim Jones DO [Family Provider, Family Practice]
Satish Daley MD [Active, Orthopedics] - in two weeks
Additional Discharge Medication Instructions: BP is well controlled and in age appropriate range with Losartan and Metoprolol. Stop Amlodipine (which causes leg swelling) and Stop Lasix (which was treating leg swelling side effect of Amlodipine)
Prescriptions:
New
acetaminophen [Tylenol Extra Strength] 500 mg Tablet
1,000 mg PO TID Qty: 100 0RF
Continued
atorvastatin 10 mg Tablet
10 mg PO DAILY
ferrous sulfate [Iron (ferrous sulfate)] 325 mg (65 mg iron) Tablet
325 mg PO MOWEFR
metoprolol succinate 25 mg Tablet Extended Release 24 Hr
25 mg PO DAILY
albuterol sulfate 90 mcg/actuation Hfa Aerosol Inhaler
2 puff INHALATION Q6H PRN (Reason: sob)
losartan 100 mg Tablet
100 mg PO DAILY
escitalopram oxalate [Lexapro] 10 mg Tablet
10 mg PO DAILY
cholecalciferol (vitamin D3) [Vitamin D3] 25 mcg (1,000 unit) Tablet
25 mcg PO DAILY
omeprazole 20 mg Tablet,Delayed Release (Dr/Ec)
20 mg PO DAILY
fluticasone furoate-vilanterol [Breo Ellipta] 100-25 mcg/dose Blister With Device
1 inh INHALATION DAILY
lactase [Dairy Relief] 3,000 unit tablet
3,000 unit PO AC
acetaminophen 325 mg Tablet
650 mg PO Q6HPRN PRN (Reason: mod to severe pain) Qty: 10 0RF
melatonin 5 mg Tablet
5 mg PO HS PRN (Reason: insomnia)
Discontinued
amlodipine 5 mg Tablet
5 mg PO HS
acetaminophen 500 mg Tablet
1,000 mg PO BID
furosemide [Lasix] 20 mg Tablet
20 mg PO DAILY
Discharge Orders:
Discharge Patient (As Directed); Ordered 04/29/25
Ordered By: Shruthi So
Discharge Date and Time
Print Language: AMHARIC
== END 2025-04-29 12:56 ==
LOC: 3 WEST ACU 02:52
PROVIDERS: Emergency Medicine; ADMITTING PHYSICIAN Hospitalist; ATTENDING PHYSICIAN Internal Medicine; CONSULT PHYSICIAN Orthopaedic Surgery Hand Surgery; EMERGENCY PHYSICIAN Emergency Medicine; FAMILY PHYSICIAN Student in an Organized Health Care Education/Training Program
DX: S52.021A Displaced fracture of olecranon process without intraarticular extension of right ulna, initial encounter for closed fracture (principal); M25.521 Pain in right elbow; S00.81XA Abrasion of other part of head, initial encounter; S61.511A Laceration without foreign body of right wrist, initial encounter; S22.31XA Fracture of one rib, right side, initial encounter for closed fracture; S22.029A Unspecified fracture of second thoracic vertebra, initial encounter for closed fracture; S00.83XA Contusion of other part of head, initial encounter; W19.XXXA Unspecified fall, initial encounter; Y93.9 Activity, unspecified; Y92.091 Bathroom in other non-institutional residence as the place of occurrence of the external cause; G30.9 Alzheimer's disease, unspecified; F32.A Depression, unspecified; I12.9 Hypertensive chronic kidney disease with stage 1 through stage 4 chronic kidney disease, or unspecified chronic kidney disease; I25.10 Atherosclerotic heart disease of native coronary artery without angina pectoris; J44.9 Chronic obstructive pulmonary disease, unspecified; F02.84 Dementia in other diseases classified elsewhere, unspecified severity, with anxiety; F02.83 Dementia in other diseases classified elsewhere, unspecified severity, with mood disturbance; N18.9 Chronic kidney disease, unspecified; M81.0 Age-related osteoporosis without current pathological fracture; E78.00 Pure hypercholesterolemia, unspecified; I27.20 Pulmonary hypertension, unspecified; E11.22 Type 2 diabetes mellitus with diabetic chronic kidney disease; R55 Syncope and collapse; R29.6 Repeated falls; M16.0 Bilateral primary osteoarthritis of hip; M53.3 Sacrococcygeal disorders, not elsewhere classified; M47.816 Spondylosis without myelopathy or radiculopathy, lumbar region; R60.0 Localized edema; G47.33 Obstructive sleep apnea (adult) (pediatric); K21.9 Gastro-esophageal reflux disease without esophagitis; E04.1 Nontoxic single thyroid nodule; K22.70 Barrett's esophagus without dysplasia; J98.11 Atelectasis; Z87.19 Personal history of other diseases of the digestive system; Z91.81 History of falling; Z87.01 Personal history of pneumonia (recurrent); Z79.51 Long term (current) use of inhaled steroids
CPT/HCPCS: 29105; 70450; 71046; 72125; 72170; 73080; 80048; 80053; 82962; 83036; 84443; 85025; 85027; 87811; 94640; 97163; 97167; 97535; 99285; G0378